=== PATIENT | female | born 1945 | race Caucasian/White ===

== ENCOUNTER 2016-09-07 09:08 | Outpatient (CLI) | payer MEDICARE, OTHER | END 2016-09-07 09:09 | disposition home or self-care (01) | DX: E78.2 Mixed hyperlipidemia (principal); E55.9 Vitamin D deficiency, unspecified; Z79.899 Other long term (current) drug therapy; F32.9 Major depressive disorder, single episode, unspecified ==

== ENCOUNTER 2016-10-25 13:11 | Outpatient (CLI) | payer MEDICARE, OTHER | END 2016-10-25 13:12 | disposition home or self-care (01) | DX: Z13.820 Encounter for screening for osteoporosis (principal); M85.88 Other specified disorders of bone density and structure, other site; Z78.0 Asymptomatic menopausal state ==

== ENCOUNTER 2016-10-25 13:12 | Outpatient (CLI) | payer MEDICARE, OTHER | END 2016-10-25 13:13 | disposition home or self-care (01) | DX: Z12.31 Encounter for screening mammogram for malignant neoplasm of breast (principal) ==

== ENCOUNTER 2017-09-07 08:31 | Outpatient (CLI) | payer MEDICARE, OTHER ==
[2017-09-07 09:03] LABS: BASOPHILS # (AUTO) 0.1 10^3/uL (0.0-0.1); BASOPHILS % (AUTO) 1.3 %; EOSINOPHILS # (AUTO) 0.4 10^3/uL (0.0-0.7); EOSINOPHILS % (AUTO) 4.5 %; HGB - HEMOGLOBIN 13.7 g/dL (12.0-16.0); LYMPHOCYTES % (AUTO) 38.1 %; MEAN CORPUSCULAR HGB CONC 33.7 g/dL (32.0-36.0); MEAN CORPUSCULAR VOLUME 97.9 fL (81.0-99.0); MEAN PLATELET VOLUME 7.3 fL (7.9-10.8); MONOCYTES # (AUTO) 0.5 10^3/uL (0.0-1.0); MONOCYTES % (AUTO) 6.6 %; NEUTROPHILS # (AUTO) 3.9 10^3/uL (1.5-6.6); NEUTROPHILS % (AUTO) 49.5 %; PLT - PLATELET COUNT 287 10^3/uL (130-450); RED BLOOD COUNT 4.16 10^6/uL (4.20-5.40); RED CELL DISTRIBUTION WIDTH 12.7 % (12.0-15.0); WHITE BLOOD COUNT 7.9 x10^3/uL (4.8-10.8)
[2017-09-07 09:23] LABS: ALBUMIN 3.8 g/dL (3.2-5.5); ALBUMIN/GLOBULIN RATIO 1.5 (1.0-2.2); ALKALINE PHOSPHATASE 60 IU/L (42-121); ALT ALANINE AMINOTRANSFERASE 17 IU/L (10-60); AST ASPARTATE AMINOTRANSFERASE 16 IU/L (10-42); BILIRUBIN,TOTAL 0.3 mg/dL (0.2-1.0); BUN - BLOOD UREA NITROGEN 15 mg/dL (6-20); CALCIUM 9.1 mg/dL (8.5-10.3); CARBON DIOXIDE - CO2 25 mmol/L (21-32); CHLORIDE 107 mmol/L (101-111); CHOL/HDL RATIO 3.3 (<4.4); CHOLESTEROL 163 mg/dL; CREATININE 1.1 mg/dL (0.4-1.0); GFR - MDRD 49 (>89); GLUCOSE 92 mg/dL (70-100); HDL CHOLESTEROL 49 mg/dL; LDL CHOLESTEROL,CALCULATED 82 mg/dL; LDL/HDL RATIO 1.7 (<4.4); SODIUM 139 mmol/L (135-145); TOTAL PROTEIN 6.4 g/dL (6.7-8.2); VLDL CHOLESTEROL 32 mg/dL
[2017-09-08 13:44] LABS: HEPATITIS C ANTIBODY NON-REACTIVE (NON-REACTIVE)
== END 2017-09-07 08:32 | disposition home or self-care (01) ==
LOC: LAB 08:31
PROVIDERS: ATTEND Physician Assistant Medical
DX: F32.9 Major depressive disorder, single episode, unspecified (principal); E78.5 Hyperlipidemia, unspecified; Z11.59 Encounter for screening for other viral diseases; Z72.89 Other problems related to lifestyle; Z79.899 Other long term (current) drug therapy
CPT/HCPCS: 36415; 80053; 80061; 82306; 83721; 84443; 85025; 86803

== ENCOUNTER 2017-10-06 14:15 | Outpatient (CLI) | payer MEDICARE, OTHER | END 2017-10-06 14:16 | disposition home or self-care (01) | LOC: LAB.R 14:15 | PROVIDERS: ATTEND Physician Assistant Medical | DX: B37.2 Candidiasis of skin and nail (principal) | CPT/HCPCS: 87101; 87106; 87220 ==

== ENCOUNTER 2017-12-27 10:50 | Outpatient (CLI) | payer MEDICARE, OTHER ==
[2017-12-27 14:03] LABS: ALBUMIN 3.7 g/dL (3.2-5.5); BILIRUBIN,DIRECT 0.1 mg/dL (0.1-0.5); BILIRUBIN,TOTAL 0.3 mg/dL (0.2-1.0); TOTAL PROTEIN 6.7 g/dL (6.7-8.2)
== END 2017-12-27 10:51 | disposition home or self-care (01) ==
LOC: LAB.R 10:50
PROVIDERS: ATTEND Physician Assistant Medical
DX: B37.2 Candidiasis of skin and nail (principal); Z79.899 Other long term (current) drug therapy
CPT/HCPCS: 80076

== ENCOUNTER 2018-03-24 09:30 | Outpatient (CLI) | payer MEDICARE, OTHER ==
[2018-03-24 10:02] LABS: ALBUMIN 3.6 g/dL (3.2-5.5); BILIRUBIN,DIRECT 0.1 mg/dL (0.1-0.5); BILIRUBIN,TOTAL 0.5 mg/dL (0.2-1.0); TOTAL PROTEIN 6.4 g/dL (6.7-8.2)
== END 2018-03-24 09:31 | disposition home or self-care (01) ==
LOC: LAB 09:30
PROVIDERS: ATTEND Physician Assistant Medical
DX: B37.2 Candidiasis of skin and nail (principal); Z79.899 Other long term (current) drug therapy
CPT/HCPCS: 36415; 80076

== ENCOUNTER 2018-04-16 16:48 | Inpatient (IN) | payer MEDICARE, OTHER ==
[2018-04-16] MEDS ORDERED: SODIUM CHLORIDE 0.9% 1,000 ML IV ONE ×2 (17:44→19:45)
--- NOTE | 2018-04-16 17:46 | ED Physician Documentation ---
PD HPI HEADACHE - Stated complaint Stated Complaint: MARTINEZ/CHILLS - Chief complaint Chief Complaint: Neuro - History obtained from History obtained from: Patient, Family ( mostly because the patient is somewhat altered) - History of Present Illness Timing - onset: Other (This is a previously very healthy 72-year-old woman who had a flu shot on Tuesday and then around started to become ill with fevers, body aches and chills and also progressively today decreased appetite. This afternoon she has not been thinking as well as usual.) Review of Systems Unable to obtain: Confused PD PAST MEDICAL HISTORY - Past Medical History Psych: Depression Musculoskeletal: Other - Past Surgical History Past Surgical History: Yes /BILLING SPEC: section HEENT: Tonsil/Adenoidectomy - Present Medications Home Medications: Ambulatory Orders Medication Instructions Recorded Confirmed Citalopram Hydrobromide [Celexa] 40 mg PO 08/12/13 01/18/15 Cyclobenzaprine [Flexeril] 10 mg PO DAILY 08/12/13 01/18/15 Hydrocodone/Acetaminophen 1 each PO DAILY 08/12/13 01/18/15 [Hydrocodon-Acetaminophn 10-325] - Allergies Allergies/Adverse Reactions: Allergies Allergy/AdvReac Type Severity Reaction Status Date / Time Sulfa (Sulfonamide Allergy Intermediate Rash Verified 04/16/18 16:55 Antibiotics) - Social History Does the pt smoke?: Yes Smoking Status: Current every day smoker Does the pt drink ETOH?: Yes - Immunizations Immunizations: TDAP >10years/unknown PD ED PE NORMAL - Vitals Vital signs reviewed: Yes - General General: Other (She is alert but falls asleep easily. She answers simple questions, she knows she is in the hospital but is a poor historian. She is unable to remember the day or the year. 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 Eye Opening: Spontaneous Motor: Obeys Commands Verbal: Confused GCS Score: 14 - Psych Psych: Normal mood, Normal affect Results - Vitals Vitals: Vital Signs - 24 hr 04/16/18 04/16/18 04/16/18 16:51 17:38 19:13 Temperature 37.4 C Heart Rate 79 104 H 106 H Respiratory 18 16 16 Rate Blood Pressure 106/41 L 105/51 L 84/44 L O2 Saturation 97 100 97 04/16/18 04/16/18 19:42 21:04 Temperature Heart Rate 104 H 97 Respiratory 18 16 Rate Blood Pressure 87/51 L 82/48 L O2 Saturation 96 97 Oxygen O2 Source Room air - EKG (time done) 1908 Rate: Rate (enter#) (103) Rhythm: NSR, LAE [place]: Normal Intervals: Normal MA QRS: Normal Ischemia: Non specific changes. No: ST elevation c/w ischemia Computer interpretation: Agree with computer - Labs Labs: Laboratory Tests 04/16/18 04/16/18 04/16/18 17:50 17:50 17:50 WBC 7.6 RBC 3.79 L Hgb 12.6 Hct 36.8 L MCV 97.0 MCH 33.3 H MCHC 34.3 RDW 13.0 Plt Count 127 L MPV 8.0 Neut # (Auto) 7.3 H Lymph # (Auto) 0.2 L [place] # (Auto) 0.2 Eos # (Auto) 0.0 Baso # (Auto) 0.0 Absolute Nucleated RBC 0.00 Nucleated RBC % 0.0 PT INR Sodium 129 L Potassium 4.1 Chloride 96 L Carbon Dioxide 22 Anion Gap 11.0 BUN 32 H Creatinine 1.5 H Estimated GFR (MDRD) 34 L Glucose 100 Lactic Acid Calcium 8.8 Total Bilirubin 0.6 AST 164 H ALT 108 H Alkaline Phosphatase 78 Total Creatine Kinase 276 H Troponin I 0.09 Total Protein 6.4 L Albumin 3.4 Globulin 3.0 Albumin/Globulin Ratio 1.1 Lipase 22 Urine Color Urine Clarity Urine pH Ur Specific [place] Urine Protein Urine Glucose (UA) Urine Ketones Urine Occult Blood Urine Nitrite Urine Bilirubin Urine Urobilinogen Ur Leukocyte Esterase Urine RBC Urine WBC Ur Squamous Epith Cells Amorphous Sediment Urine Bacteria Ur Microscopic Review Urine Culture Comments Urine Opiates Screen Ur Oxycodone Screen Urine Methadone Screen Ur Propoxyphene Screen Acetaminophen Ur Barbiturates Screen Ur Tricyclics Screen Ur Phencyclidine Scrn Ur Amphetamine Screen U Methamphetamines Scrn U Benzodiazepines Scrn Urine Cocaine Screen U Cannabinoids Screen Ethyl Alcohol < 5.0 Influenza A (Rapid) Influenza B (Rapid) 04/16/18 04/16/18 04/16/18 17:50 17:50 17:50 WBC RBC Hgb Hct MCV MCH MCHC RDW Plt Count MPV Neut # (Auto) Lymph # (Auto) [place] # (Auto) Eos # (Auto) Baso # (Auto) Absolute Nucleated RBC Nucleated RBC % PT INR Sodium Potassium Chloride Carbon Dioxide Anion Gap BUN Creatinine Estimated GFR (MDRD) Glucose Lactic Acid 1.9 Calcium Total Bilirubin AST ALT Alkaline Phosphatase Total Creatine Kinase Troponin I Total Protein Albumin Globulin Albumin/Globulin Ratio Lipase Urine Color Urine Clarity Urine pH Ur Specific [place] Urine Protein Urine Glucose (UA) Urine Ketones Urine Occult Blood Urine Nitrite Urine Bilirubin Urine Urobilinogen Ur Leukocyte Esterase Urine RBC Urine WBC Ur Squamous Epith Cells Amorphous Sediment Urine Bacteria Ur Microscopic Review Urine Culture Comments Urine Opiates Screen Ur Oxycodone Screen Urine Methadone Screen Ur Propoxyphene Screen Acetaminophen < 10 L Ur Barbiturates Screen Ur Tricyclics Screen Ur Phencyclidine Scrn Ur Amphetamine Screen U Methamphetamines Scrn U Benzodiazepines Scrn Urine Cocaine Screen U Cannabinoids Screen Ethyl Alcohol Influenza A (Rapid) Negative Influenza B (Rapid) Negative 04/16/18 04/16/18 04/16/18 19:00 19:00 19:25 WBC RBC Hgb Hct MCV MCH MCHC RDW Plt Count MPV Neut # (Auto) Lymph # (Auto) [place] # (Auto) Eos # (Auto) Baso # (Auto) Absolute Nucleated RBC Nucleated RBC % PT INR Sodium Potassium Chloride Carbon Dioxide Anion Gap BUN Creatinine Estimated GFR (MDRD) Glucose Lactic Acid Calcium Total Bilirubin AST ALT Alkaline Phosphatase Total Creatine Kinase Troponin I 0.09 Total Protein Albumin Globulin Albumin/Globulin Ratio Lipase Urine Color YELLOW Urine Clarity HAZY Urine pH 5.0 Ur Specific [place] 1.025 Urine Protein NEGATIVE Urine Glucose (UA) NEGATIVE Urine Ketones NEGATIVE Urine Occult Blood MODERATE H Urine Nitrite NEGATIVE Urine Bilirubin NEGATIVE Urine Urobilinogen 0.2 (NORMAL) Ur Leukocyte Esterase NEGATIVE Urine RBC 6-10 H Urine WBC 4-5 Ur Squamous Epith Cells MANY Squamous H Amorphous Sediment Few Urine Bacteria Few Ur Microscopic Review INDICATED Urine Culture Comments NOT INDICATED Urine Opiates Screen POSITIVE H Ur Oxycodone Screen NEGATIVE Urine Methadone Screen NEGATIVE Ur Propoxyphene Screen NEGATIVE Acetaminophen Ur Barbiturates Screen NEGATIVE Ur Tricyclics Screen POSITIVE H Ur Phencyclidine Scrn NEGATIVE Ur Amphetamine Screen NEGATIVE U Methamphetamines Scrn NEGATIVE U Benzodiazepines Scrn NEGATIVE Urine Cocaine Screen NEGATIVE U Cannabinoids Screen NEGATIVE Ethyl Alcohol Influenza A (Rapid) Influenza B (Rapid) 04/16/18 21:26 WBC RBC Hgb Hct MCV MCH MCHC RDW Plt Count MPV Neut # (Auto) Lymph # (Auto) [place] # (Auto) Eos # (Auto) Baso # (Auto) Absolute Nucleated RBC Nucleated RBC % PT 16.2 H INR 1.4 H Sodium Potassium Chloride Carbon Dioxide Anion Gap BUN Creatinine Estimated GFR (MDRD) Glucose Lactic Acid Calcium Total Bilirubin AST ALT Alkaline Phosphatase Total Creatine Kinase Troponin I Total Protein Albumin Globulin Albumin/Globulin Ratio Lipase Urine Color Urine Clarity Urine pH Ur Specific [place] Urine Protein Urine Glucose (UA) Urine Ketones Urine Occult Blood Urine Nitrite Urine Bilirubin Urine Urobilinogen Ur Leukocyte Esterase Urine RBC Urine WBC Ur Squamous Epith Cells Amorphous Sediment Urine Bacteria Ur Microscopic Review Urine Culture Comments Urine Opiates Screen Ur Oxycodone Screen Urine Methadone Screen Ur Propoxyphene Screen Acetaminophen Ur Barbiturates Screen Ur Tricyclics Screen Ur Phencyclidine Scrn Ur Amphetamine Screen U Methamphetamines Scrn U Benzodiazepines Scrn Urine Cocaine Screen U Cannabinoids Screen Ethyl Alcohol Influenza A (Rapid) Influenza B (Rapid) - Rads (name of study) 2v chest Radiology: EMP read contemporaneously (Possible small left pleural effusion without other acute findings) CT head Radiology: EMP read contemporaneously (nad) PD MEDICAL DECISION MAKING - ED course ED course: 72-year-old woman presents with an acute illness with Rigors, body aches, now altered mental status. After the administration of IV fluids her mental status returned to normal and she continued to have no meningismus. Initial workup dem onstrated a clear chest x-ray, very modest elevation in her troponin, mildly elevated liver enzymes. Troponin was repeated. She became mildly hypotensive and tachycardic, possibility of pulmonary embolism was entertained given the troponinemia and a CT was done. Hypotension was persistent. Troponin was stable. She was given a third L of IV fluids. CT neg for PE. Spoke with Dr oPrtillo for admit at 2110. Departure - Departure Disposition: ED Place in Observation Clinical Impression: Hypotension, Tachycardia, Elevated liver enzymes, Elevated troponin, Dehydration, Acute renal injury Condition: Serious Discharge Date/Time: 04/16/18 22:27
[2018-04-16 18:05] LABS: BASOPHILS % (AUTO) 0.2 %; HGB - HEMOGLOBIN 12.6 g/dL (12.0-16.0); LYMPHOCYTES # (AUTO) 0.2 10^3/uL (1.5-3.5); LYMPHOCYTES % (AUTO) 2.3 %; MEAN CORPUSCULAR HEMOGLOBIN 33.3 pg (27.0-31.0); MEAN CORPUSCULAR HGB CONC 34.3 g/dL (32.0-36.0); MONOCYTES # (AUTO) 0.2 10^3/uL (0.0-1.0); MONOCYTES % (AUTO) 2.1 %; NEUTROPHILS # (AUTO) 7.3 10^3/uL (1.5-6.6); NEUTROPHILS % (AUTO) 95.4 %; PLT - PLATELET COUNT 127 10^3/uL (130-450); RED BLOOD COUNT 3.79 10^6/uL (4.20-5.40); WHITE BLOOD COUNT 7.6 x10^3/uL (4.8-10.8)
--- NOTE | 2018-04-16 18:14 | CT Report ---
Reason: altered Procedure Date: 04/16/2018 Accession Number: [id number] / [id number] Procedure: CT - Head W/O CPT Code: FULL RESULT: EXAM: CT HEAD EXAM DATE: 04/16/2018 05:56 PM. CLINICAL HISTORY: Altered. COMPARISON: None available. TECHNIQUE: Multiaxial CT images were obtained from the foramen magnum to the vertex. Reformats: Sagittal and coronal. IV contrast: None. In accordance with CT protocol optimization, one or more of the following dose reduction techniques were utilized for this exam: automated exposure control, adjustment of mA and/or KV based on patient size, or use of iterative reconstructive technique. FINDINGS: Parenchyma: No acute intraparenchymal hemorrhage. No evidence of mass or midline shift. Patel-white differentiation is distinct. Extraaxial Spaces: No subdural or epidural collections identified. Ventricles: Normal in size and position. Sinuses and Orbits: Imaged paranasal sinuses, orbits, and mastoids show no significant abnormality. Bones: No evidence of fracture or calvarial defect. Other: None. IMPRESSION: No acute intracranial findings. An acute infarct may not be visible by CT. Follow-up examinations recommended as clinically indicated. RADIA
[2018-04-16 18:15] LABS: ALBUMIN 3.4 g/dL (3.2-5.5); ALBUMIN/GLOBULIN RATIO 1.1 (1.0-2.2); ALKALINE PHOSPHATASE 78 IU/L (42-121); ALT ALANINE AMINOTRANSFERASE 108 IU/L (10-60); AST ASPARTATE AMINOTRANSFERASE 164 IU/L (10-42); BILIRUBIN,TOTAL 0.6 mg/dL (0.2-1.0); BUN - BLOOD UREA NITROGEN 32 mg/dL (6-20); CALCIUM 8.8 mg/dL (8.5-10.3); CARBON DIOXIDE - CO2 22 mmol/L (21-32); CHLORIDE 96 mmol/L (101-111); CK- CREATINE KINASE 276 IU/L (22-269); CREATININE 1.5 mg/dL (0.4-1.0); GFR - MDRD 34 (>89); GLUCOSE 100 mg/dL (70-100); LIPASE 22 U/L (22-51); SODIUM 129 mmol/L (135-145); TOTAL PROTEIN 6.4 g/dL (6.7-8.2)
--- NOTE | 2018-04-16 18:24 | XRAY Report ---
Reason: fever Procedure Date: 04/16/2018 Accession Number: [id number] / [id number] Procedure: XR - Chest 2 View X-Ray CPT Code: 60978 FULL RESULT: EXAM: CHEST RADIOGRAPHY EXAM DATE: 04/16/2018 06:12 PM. CLINICAL HISTORY: Fever. COMPARISON: None. TECHNIQUE: 2 views. FINDINGS: Lungs/Pleura: Lungs are well expanded. No evidence of lobar consolidation. There may be a small left pleural effusion. There is no pneumothorax. Mediastinum: Normal heart size. Minimal thoracic aortic tortuosity and calcification. Other: Mild S shaped scoliotic curvature of the thoracolumbar spine. IMPRESSION: 1. Normal lung volumes and heart size. 2. No evidence of lobar infiltrate. 3. Possible small left pleural effusion. 4. No pneumothorax. RADIA
[2018-04-16 19:14] LABS: MUDS CUTOFF CONCENTRATIONS CUTOFF CONC BELOW:
[2018-04-16 19:15] LABS: BILIRUBIN,URINE NEGATIVE (NEGATIVE); GLUCOSE, URINE (UA) NEGATIVE (NEGATIVE); KETONES,URINE (UA) NEGATIVE (NEGATIVE); LEUKOCYTE ESTERASE, URINE NEGATIVE (NEGATIVE); NITRITE,URINE NEGATIVE (NEGATIVE); OCCULT BLOOD,URINE MODERATE (NEGATIVE); PROTEIN,URINE NEGATIVE (NEGATIVE); UROBILINOGEN,URINE 0.2 (NORMAL) E.U./dL (NORMAL)
[2018-04-16 19:21] LABS: CLARITY,URINE HAZY (CLEAR)
[2018-04-16] MEDS ORDERED: IOPAMIDOL-300 100 ML VIAL ONE (19:25)
[2018-04-16 19:26] LABS: AMPHETAMINE SCREEN,URINE NEGATIVE (NEGATIVE); BENZODIAZEPINES SCREEN, URINE NEGATIVE (NEGATIVE); COCAINE SCREEN URINE NEGATIVE (NEGATIVE); METHADONE SCREEN, URINE NEGATIVE (NEGATIVE); METHAMPHETAMINES SCREEN, URINE NEGATIVE (NEGATIVE); OPIATE SCREEN, URINE POSITIVE (NEGATIVE); OXYCODONE SCREEN, URINE NEGATIVE (NEGATIVE); PROPOXYPHENE SCREEN, URINE NEGATIVE (NEGATIVE); TRICYCLIC ANTIDEPRESSANT,URINE POSITIVE (NEGATIVE)
[2018-04-16 19:33] LABS: AMORPHOUS SEDIMENT,UR Few /LPF; BACTERIA,URINE Few /HPF (None Seen); SQUAMOUS EPITHELIAL CELL,UR MANY Squamous (<= Few)
[2018-04-16] MEDS ORDERED: IOPAMIDOL-300 100 ML VIAL IVP ONE (20:03)
--- NOTE | 2018-04-16 20:49 | CT Report ---
Reason: tachycardia Procedure Date: 04/16/2018 Accession Number: [id number] / [id number] Procedure: CT - Chest Angio (PE) CPT Code: FULL RESULT: EXAM: CT ANGIOGRAM CHEST EXAM DATE: 04/16/2018 08:19 PM. CLINICAL HISTORY: Tachycardia. COMPARISON: None. TECHNIQUE: Routine helical imaging was performed through the chest in the pulmonary arterial phase. IV Contrast: ISOVUE 300 80mL. Reconstructions: Coronal 3-D MIP reconstructions.Sagittal and coronal. In accordance with CT protocol optimization, one or more of the following dose reduction techniques were utilized for this exam: automated exposure control, adjustment of mA and/or KV based on patient size, or use of iterative reconstructive technique. FINDINGS: Pulmonary Arteries: Diagnostic quality: Adequate through the segmental arteries. No evidence for acute or chronic pulmonary emboli. Lungs/Pleura: No consolidation, nodules, or edema. No effusions or pneumothorax. Mediastinum: Normal. No cardiac enlargement or adenopathy. Thoracic Aorta: Unremarkable. Upper Abdomen: The visualized portions of the upper abdominal organs demonstrate no acute abnormalities. Other: None. IMPRESSION: Negative pulmonary CT angiogram. No pulmonary emboli. RADIA
[2018-04-16] MEDS ORDERED: PIPERACILLIN/TAZOBACTAM 3.375 GM in SODIUM CHLORIDE 0.9% MINIBAG 100 ML IV STA (21:02)
[2018-04-16] MEDS ORDERED: LACTATED RINGERS 1,000 ML IV STA (21:02)
[2018-04-16 21:35] LABS: INR 1.4 (0.8-1.2); PT - PROTHROMBIN TIME 16.2 secs (9.9-12.6)
[2018-04-16] MEDS ORDERED: PROCHLORPERAZINE 10 MG/2 ML VIAL IVP PRN (21:52)
[2018-04-16] MEDS ORDERED: VANCOMYCIN INJ 1 GM in SODIUM CHLORIDE 0.9% 500 ML IV SCH (22:00)
[2018-04-16] MEDS ORDERED: VANCOMYCIN 1 GM VIAL ONE (22:01)
[2018-04-16] MEDS: D5NS W/20 MEQ KCL 1,000 ML IV SCH (22:57)
[2018-04-17] MEDS ORDERED: SODIUM CHLORIDE 0.9% 1,000 ML IV ONE (00:17)
[2018-04-17] MEDS: SODIUM CHLORIDE FLUSH 0.9% 10 ML SYRINGE IVP SCH ×3 (00:31→17:00)
--- NOTE | 2018-04-17 01:40 | HISTORY & PHYSICAL EXAMINATION ---
DATE OF SERVICE: 04/16/2018 Physician: Kristi Portillo MD HISTORY OF PRESENT ILLNESS: This is a 72-year-old white female with a history of neck pain for which she takes Flexeril and pain medications. She is a smoker with possible COPD. The patient got a flu shot about 6 days ago. Two days ago, she started to develop weakness, severe rigors, and intermittently was confused. This morning, she had severe shaking chills for many hours. Her felt her skin and said that she felt clammy. No temperature was measured. She got more confused and was unable to answer coherently, and he brought her to the emergency room. In the emergency room, she had a low blood pressure of 90-100 systolic, received 1 L of fluid, which improved her mental status back to normal. She denied any other complaints such as dysuria, cough, shortness of breath, nausea, vomiting or diarrhea. Her labs are showing acute kidney injury, possibly from dehydration. PAST MEDICAL HISTORY 1. Neck pain, for which she takes muscle relaxants and pain medications. 2. Possible COPD with longstanding smoking history. FAMILY HISTORY: No inherited diseases. She has a brother, who is healthy. She has 1 child, who is healthy. SOCIAL HISTORY: She is a smoker of half a pack a day for many years. She drinks very rare alcohol and uses no illicit drugs. REVIEW OF SYSTEMS: A comprehensive review of systems was performed, and the pertinent positives are in the HPI; the rest are negative. She says she occasionally does get a flu shot and never has had a reaction such as this. ALLERGIES: SULFA. MEDICATIONS 1. Flexeril. 2. Tylenol with codeine. 3. Celexa. PHYSICAL EXAMINATION GENERAL: White female who appears older than her age. She has marked wrinkling of the skin of her face. VITAL SIGNS: Blood pressure 101/63, pulse of 94-104 in sinus rhythm, afebrile, room air saturation 94%. HEENT: Shows dry oral mucosa. NECK: Without JVD or carotid bruits. CHEST: Clear. HEART: Sounds normal. ABDOMEN: Soft, nontender. No organomegaly. EXTREMITIES: No clubbing, cyanosis, or edema. NEUROLOGIC: Intact. A nurse in the emergency room said that she had excoriation over the buttocks and sacral area. LABORATORY DATA: Sodium 129, potassium 4.1, BUN 32, creatinine 1.5. Lactic acid 1.9. AST 164, ALT 108, alkaline phosphatase 78, bilirubin normal at 0.6. Troponins are normal x2 at 0.09 and 0.09. Lipase normal at 22. White blood count 7.6 with a left shift, hemoglobin 12.6 with an MCV of 97, platelet count 127. INR 1.4. Urine screen showed positive opiates and positive tricyclics. No alcohol. Urinalysis unremarkable. Influenza was negative for A and B. DIAGNOSTIC STUDIES 1. Chest x-ray unremarkable. 2. CTA of the chest unremarkable with no PE. CT of the brain showed no acute findings. 3. EKG: Sinus tachycardia, diffusely flat T waves. IMPRESSION/DIAGNOSES 1. Altered mental status. 2. Dehydration. 3. Influenza-like symptoms. 4. Acute kidney injury. 5. Elevated liver function tests. 6. Abnormal EKG. PLAN: Place the patient in Observation on telemetry. Begin IV fluids. CT of the head was done and has shown no abnormality, and she did not present with symptoms of TIA with focal findings. Rather, more likely her flu-like symptoms or dehydration caused the altered mental status, which has now cleared. Follow her liver function tests and obtain an abdomen CT to evaluate the liver and surrounding organs. Assess her orthostatic vital signs and signs of dehydration before discharge. The patient was fully cultured and given empiric Zosyn and Vancomycin in the emergency room. These will not be continued, as there is no obvious source of a bacterial infection other than her elevated liver tests. CODE STATUS: FULL CODE. DEEP VENOUS THROMBOSIS PROPHYLAXIS: SCDs. ATTESTATION: The patient is expected to be discharged or transferred to another facility within 96 hours: Yes. TD: 04/17/2018 00:26 MTDTim
[2018-04-17] MEDS: HYDROcod/ACETAM 5/325 MG TABLET PO PRN ×4 (01:44→19:23)
[2018-04-17] MEDS ORDERED: VANCOMYCIN PER PHARMACY 100 GM in SODIUM CHLORIDE 0.9% 250 ML IV PRN (05:00)
[2018-04-17 05:48] LABS: ALBUMIN 2.4 g/dL (3.2-5.5); BILIRUBIN,TOTAL 0.7 mg/dL (0.2-1.0); CALCIUM 7.7 mg/dL (8.5-10.3); CREATININE 1.1 mg/dL (0.4-1.0); TOTAL PROTEIN 4.7 g/dL (6.7-8.2)
[2018-04-17] MEDS: D5NS W/20 MEQ KCL 1,000 ML IV SCH ×4 (06:02→21:47)
[2018-04-17] MEDS: PANTOPRAZOLE 40 MG TABLET PO SCH (06:15)
[2018-04-17] MEDS ORDERED: IOPAMIDOL-300 50 ML VIAL ONE (07:40)
[2018-04-17] MEDS ORDERED: MIN OIL/DIMETHICON/COCONUT OIL 92 GM TUBE TOP PRN (08:32)
[2018-04-17] MEDS: POLYETHYLENE GLYCOL 3350 17 GM PACKET PO SCH (09:19)
[2018-04-17] MEDS: CITALOPRAM 10 MG TABLET PO SCH (09:19)
--- NOTE | 2018-04-17 11:30 | PROVIDER PROGRESS NOTE ---
Subjective - Prog Note Date Prog Note Date: 04/17/18 Prog Note Time: 11:29 - Subjective Pt reports feeling: Improved Subjective: Elsie complains about being in the hospital and immediately wants to know when she gets to go home. Her , Roberto is at the bedside later today for test results, and an update on medical condition. She denies chest pain, nausea, vomiting, a new rash, worsening shortness of breath or a new cough. She states that her back is still bothering her and denies any falls or injuries to it. She believes that it may be due to being confined to bed. Current Medications - Current Medications Current Medications: Active Medications Acetaminophen (Tylenol) 650 mg PO Q4HR PRN PRN Reason: Mild pain/Fever > 38C (100.4F) Hydrocodone Bitart/Acetaminophen ([place] 5/325) 1 tab PO Q4HR PRN PRN Reason: Pain 5 to 7 Last Admin: 04/17/18 15:39 Dose: 1 tab Albuterol/Ipratropium (Duoneb) 3 ml INH Q4HR PRN PRN Reason: Wheezing Citalopram Hydrobromide (Celexa) 40 mg PO DAILY [facility] Last Admin: 04/17/18 09:19 Dose: 40 mg Potassium Chloride/Dextrose/Sod Cl () 1,000 mls @ 200 mls/hr IV .Q5H KEESHA Last Admin: 04/17/18 16:20 Dose: 200 mls/hr Vancomycin HCl 1 gm/ Sodium (Chloride) 250 mls @ 167 mls/hr IV Q24H KEESHA Piperacillin Sod/Tazobactam (Sod 2.25 gm/ Sodium Chloride) 100 mls @ 200 mls/hr IV Q6H KEESHA Mineral Oil (Cavilon) 1 applic TOP PRN PRN PRN Reason: Skin Care Nicotine (Nicoderm) 1 patch TOP DAILY PRN PRN Reason: NEEDED PER PROVIDER ORDERS Pantoprazole Sodium (Protonix) 40 mg PO QDAC [facility] Last Admin: 04/17/18 06:15 Dose: 40 mg Polyethylene Glycol (Miralax) 17 gm PO DAILY [facility] Last Admin: 04/17/18 09:19 Dose: 17 gm Prochlorperazine Edisylate (Compazine Inj) 10 mg IVP Q6HR PRN PRN Reason: Nausea / Vomiting Last Admin: 04/17/18 07:55 Dose: 10 mg Sodium Chloride (Normal Saline Flush 0.9%) 10 ml IVP PRN PRN PRN Reason: NEEDED PER PROVIDER ORDERS Sodium Chloride (Normal Saline Flush 0.9%) 10 ml IVP 0100,0900,1700 KEESHA Last Admin: 04/17/18 17:00 Dose: Not Given Citalopram Hydrobromide [Celexa] 40 mg PO DAILY 08/12/13 Cyclobenzaprine [Flexeril] 10 mg PO DAILY 08/12/13 Hydrocodone/Acetaminophen [Hydrocodon-Acetaminophn 10-325] 1 each PO Q6HR PRN MDD TAKES 3-4 DAILY 08/12/13 Calcium Carbonate/Vitamin D3 [Calcium 600-Vit D3 500 Softgel] 1 cap PO DAILY 04/17/18 Cholecalciferol (Vitamin D3) [Vitamin D3] 500 unit PO DAILY 04/17/18 Multivitamin/Iron/Folic Acid [Centrum Adults Tablet] 1 each PO DAILY 04/17/18 [place]-3/Dha/Epa/Fish Oil [Fish Oil 1,000 mg Softgel] 1 each PO DAILY 04/17/18 Objective - Vital Signs/Intake & Output Reviewed Vital Signs: Yes Vital Signs: Vital Signs x48h Temp Pulse Resp BP Pulse Ox 04/17/18 07:59 36.6 C 86 16 91/46 L 97 04/17/18 05:00 36.6 C 95 18 89/48 L 97 Intake & Output: Intake & Output 04/14/18 04/15/18 04/16/18 04/17/18 23:59 23:59 23:59 23:59 Intake Total 3100 3046.667 Output Total 450 Balance 3100 2596.667 - Objective General Appearance: positive: Moderate distress, Anxious Eyes Bilateral: positive: PERRL, No lid inflammation ENT: positive: Pharynx nml, Dry mucous membranes Neck: positive: No JVD, Trachea midline Respiratory: positive: Chest non-tender, Rhonchi Cardiovascular: positive: Regular rate & rhythm, No gallop, Systolic murmur, Decreased pulse(s) Peripheral Pulses: 1+ Radial (R), 1+ Radial (L) Abdomen: positive: Non-tender, Nml bowel sounds, Other (rounded, soft) Back: positive: Nml inspection Skin: positive: No rash, Warm, Dry, Cyanosis, Diaphoresis, Pallor Extremities: positive: Non-tender, Nml appearance, No pedal edema Neurologic/Psychiatric: positive: Oriented x3, CN's nml (2-12), Motor nml, Sensation nml, Weakness, Depressed mood/affect Reflexes: Bicep (R): 3+, Bicep (L): 3+ - Lab Results Fish Bones: 04/17/18 12:07 04/17/18 05:14 Other Labs: Lab Results x24hrs 04/17/18 04/16/18 04/16/18 Range/Units 05:14 21:26 19:25 WBC (4.8-10.8) x10^3/uL RBC (4.20-5.40) 10^6/uL Hgb (12.0-16.0) g/dL Hct (37.0-47.0) % MCV (81.0-99.0) fL MCH (27.0-31.0) pg MCHC (32.0-36.0) g/dL RDW (12.0-15.0) % Plt Count (130-450) 10^3/uL MPV (7.9-10.8) fL Neut # (Auto) (1.5-6.6) 10^3/uL Lymph # (Auto) (1.5-3.5) 10^3/uL [place] # (Auto) (0.0-1.0) 10^3/uL Eos # (Auto) (0.0-0.7) 10^3/uL Baso # (Auto) (0.0-0.1) 10^3/uL Absolute Nucleated RBC x10^3/uL Nucleated RBC % /100WBC PT 16.2 H (9.9-12.6) secs INR 1.4 H (0.8-1.2) Sodium 135 (135-145) mmol/L Potassium 3.6 (3.5-5.0) mmol/L Chloride 109 (101-111) mmol/L Carbon Dioxide 20 L (21-32) mmol/L Anion Gap 6.0 (6-13) BUN 23 H (6-20) mg/dL Creatinine 1.1 H (0.4-1.0) mg/dL Estimated GFR (MDRD) 49 L (>89) Glucose 137 H (70-100) mg/dL Lactic Acid (0.5-2.2) mmol/L Calcium 7.7 L (8.5-10.3) mg/dL Total Bilirubin 0.7 (0.2-1.0) mg/dL AST 159 H (10-42) IU/L ALT 101 H (10-60) IU/L Alkaline Phosphatase 66 (42-121) IU/L Total Creatine Kinase (22-269) IU/L Troponin I 0.09 (<0.49) ng/mL Total Protein 4.7 L (6.7-8.2) g/dL Albumin 2.4 L (3.2-5.5) g/dL Globulin 2.3 (2.1-4.2) g/dL Albumin/Globulin Ratio 1.0 (1.0-2.2) Lipase (22-51) U/L Urine Color Urine Clarity (CLEAR) Urine pH (5.0-7.5) PH Ur Specific [place] (1.002-1.030) Urine Protein (NEGATIVE) mg/dL Urine Glucose (UA) (NEGATIVE) mg/dL Urine Ketones (NEGATIVE) mg/dL Urine Occult Blood (NEGATIVE) Urine Nitrite (NEGATIVE) Urine Bilirubin (NEGATIVE) Urine Urobilinogen (NORMAL) E.U./dL Ur Leukocyte Esterase (NEGATIVE) Urine RBC (0-5) /HPF Urine WBC (0-5) /HPF Ur Squamous Epith Cells (<= Few) Amorphous Sediment /LPF Urine Bacteria (None Seen) /HPF Ur Microscopic Review Urine Culture Comments Urine Opiates Screen (NEGATIVE) Ur Oxycodone Screen (NEGATIVE) Urine Methadone Screen (NEGATIVE) Ur Propoxyphene Screen (NEGATIVE) Acetaminophen (10-30) ug/mL Ur Barbiturates Screen (NEGATIVE) Ur Tricyclics Screen (NEGATIVE) Ur Phencyclidine Scrn (NEGATIVE) Ur Amphetamine Screen (NEGATIVE) U Methamphetamines Scrn (NEGATIVE) U Benzodiazepines Scrn (NEGATIVE) Urine Cocaine Screen (NEGATIVE) U Cannabinoids Screen (NEGATIVE) Ethyl Alcohol mg/dL Influenza A (Rapid) (Negative) Influenza B (Rapid) (Negative) 04/16/18 04/16/18 04/16/18 Range/Units 19:00 19:00 17:50 WBC (4.8-10.8) x10^3/uL RBC (4.20-5.40) 10^6/uL Hgb (12.0-16.0) g/dL Hct (37.0-47.0) % MCV (81.0-99.0) fL MCH (27.0-31.0) pg MCHC (32.0-36.0) g/dL RDW (12.0-15.0) % Plt Count (130-450) 10^3/uL MPV (7.9-10.8) fL Neut # (Auto) (1.5-6.6) 10^3/uL Lymph # (Auto) (1.5-3.5) 10^3/uL [place] # (Auto) (0.0-1.0) 10^3/uL Eos # (Auto) (0.0-0.7) 10^3/uL Baso # (Auto) (0.0-0.1) 10^3/uL Absolute Nucleated RBC x10^3/uL Nucleated RBC % /100WBC PT (9.9-12.6) secs INR (0.8-1.2) Sodium (135-145) mmol/L Potassium (3.5-5.0) mmol/L Chloride (101-111) mmol/L Carbon Dioxide (21-32) mmol/L Anion Gap (6-13) BUN (6-20) mg/dL Creatinine (0.4-1.0) mg/dL Estimated GFR (MDRD) (>89) Glucose (70-100) mg/dL Lactic Acid (0.5-2.2) mmol/L Calcium (8.5-10.3) mg/dL Total Bilirubin (0.2-1.0) mg/dL AST (10-42) IU/L ALT (10-60) IU/L Alkaline Phosphatase (42-121) IU/L Total Creatine Kinase (22-269) IU/L Troponin I (<0.49) ng/mL Total Protein (6.7-8.2) g/dL Albumin (3.2-5.5) g/dL Globulin (2.1-4.2) g/dL Albumin/Globulin Ratio (1.0-2.2) Lipase (22-51) U/L Urine Color YELLOW Urine Clarity HAZY (CLEAR) Urine pH 5.0 (5.0-7.5) PH Ur Specific [place] 1.025 (1.002-1.030) Urine Protein NEGATIVE (NEGATIVE) mg/dL Urine Glucose (UA) NEGATIVE (NEGATIVE) mg/dL Urine Ketones NEGATIVE (NEGATIVE) mg/dL Urine Occult Blood MODERATE H (NEGATIVE) Urine Nitrite NEGATIVE (NEGATIVE) Urine Bilirubin NEGATIVE (NEGATIVE) Urine Urobilinogen 0.2 (NORMAL) (NORMAL) E.U./dL Ur Leukocyte Esterase NEGATIVE (NEGATIVE) Urine RBC 6-10 H (0-5) /HPF Urine WBC 4-5 (0-5) /HPF Ur Squamous Epith Cells MANY Squamous H (<= Few) Amorphous Sediment Few /LPF Urine Bacteria Few (None Seen) /HPF Ur Microscopic Review INDICATED Urine Culture Comments NOT INDICATED Urine Opiates Screen POSITIVE H (NEGATIVE) Ur Oxycodone Screen NEGATIVE (NEGATIVE) Urine Methadone Screen NEGATIVE (NEGATIVE) Ur Propoxyphene Screen NEGATIVE (NEGATIVE) Acetaminophen < 10 L (10-30) ug/mL Ur Barbiturates Screen NEGATIVE (NEGATIVE) Ur Tricyclics Screen POSITIVE H (NEGATIVE) Ur Phencyclidine Scrn NEGATIVE (NEGATIVE) Ur Amphetamine Screen NEGATIVE (NEGATIVE) U Methamphetamines Scrn NEGATIVE (NEGATIVE) U Benzodiazepines Scrn NEGATIVE (NEGATIVE) Urine Cocaine Screen NEGATIVE (NEGATIVE) U Cannabinoids Screen NEGATIVE (NEGATIVE) Ethyl Alcohol mg/dL Influenza A (Rapid) (Negative) Influenza B (Rapid) (Negative) 04/16/18 04/16/18 04/16/18 Range/Units 17:50 17:50 17:50 WBC (4.8-10.8) x10^3/uL RBC (4.20-5.40) 10^6/uL Hgb (12.0-16.0) g/dL Hct (37.0-47.0) % MCV (81.0-99.0) fL MCH (27.0-31.0) pg MCHC (32.0-36.0) g/dL RDW (12.0-15.0) % Plt Count (130-450) 10^3/uL MPV (7.9-10.8) fL Neut # (Auto) (1.5-6.6) 10^3/uL Lymph # (Auto) (1.5-3.5) 10^3/uL [place] # (Auto) (0.0-1.0) 10^3/uL Eos # (Auto) (0.0-0.7) 10^3/uL Baso # (Auto) (0.0-0.1) 10^3/uL Absolute Nucleated RBC x10^3/uL Nucleated RBC % /100WBC PT (9.9-12.6) secs INR (0.8-1.2) Sodium (135-145) mmol/L Potassium (3.5-5.0) mmol/L Chloride (101-111) mmol/L Carbon Dioxide (21-32) mmol/L Anion Gap (6-13) BUN (6-20) mg/dL Creatinine (0.4-1.0) mg/dL Estimated GFR (MDRD) (>89) Glucose (70-100) mg/dL Lactic Acid 1.9 (0.5-2.2) mmol/L Calcium (8.5-10.3) mg/dL Total Bilirubin (0.2-1.0) mg/dL AST (10-42) IU/L ALT (10-60) IU/L Alkaline Phosphatase (42-121) IU/L Total Creatine Kinase (22-269) IU/L Troponin I 0.09 (<0.49) ng/mL Total Protein (6.7-8.2) g/dL Albumin (3.2-5.5) g/dL Globulin (2.1-4.2) g/dL Albumin/Globulin Ratio (1.0-2.2) Lipase (22-51) U/L Urine Color Urine Clarity (CLEAR) Urine pH (5.0-7.5) PH Ur Specific [place] (1.002-1.030) Urine Protein (NEGATIVE) mg/dL Urine Glucose (UA) (NEGATIVE) mg/dL Urine Ketones (NEGATIVE) mg/dL Urine Occult Blood (NEGATIVE) Urine Nitrite (NEGATIVE) Urine Bilirubin (NEGATIVE) Urine Urobilinogen (NORMAL) E.U./dL Ur Leukocyte Esterase (NEGATIVE) Urine RBC (0-5) /HPF Urine WBC (0-5) /HPF Ur Squamous Epith Cells (<= Few) Amorphous Sediment /LPF Urine Bacteria (None Seen) /HPF Ur Microscopic Review Urine Culture Comments Urine Opiates Screen (NEGATIVE) Ur Oxycodone Screen (NEGATIVE) Urine Methadone Screen (NEGATIVE) Ur Propoxyphene Screen (NEGATIVE) Acetaminophen (10-30) ug/mL Ur Barbiturates Screen (NEGATIVE) Ur Tricyclics Screen (NEGATIVE) Ur Phencyclidine Scrn (NEGATIVE) Ur Amphetamine Screen (NEGATIVE) U Methamphetamines Scrn (NEGATIVE) U Benzodiazepines Scrn (NEGATIVE) Urine Cocaine Screen (NEGATIVE) U Cannabinoids Screen (NEGATIVE) Ethyl Alcohol mg/dL Influenza A (Rapid) Negative (Negative) Influenza B (Rapid) Negative (Negative) 04/16/18 04/16/18 Range/Units 17:50 17:50 WBC 7.6 (4.8-10.8) x10^3/uL RBC 3.79 L (4.20-5.40) 10^6/uL Hgb 12.6 (12.0-16.0) g/dL Hct 36.8 L (37.0-47.0) % MCV 97.0 (81.0-99.0) fL MCH 33.3 H (27.0-31.0) pg MCHC 34.3 (32.0-36.0) g/dL RDW 13.0 (12.0-15.0) % Plt Count 127 L (130-450) 10^3/uL MPV 8.0 (7.9-10.8) fL Neut # (Auto) 7.3 H (1.5-6.6) 10^3/uL Lymph # (Auto) 0.2 L (1.5-3.5) 10^3/uL [place] # (Auto) 0.2 (0.0-1.0) 10^3/uL Eos # (Auto) 0.0 (0.0-0.7) 10^3/uL Baso # (Auto) 0.0 (0.0-0.1) 10^3/uL Absolute Nucleated RBC 0.00 x10^3/uL Nucleated RBC % 0.0 /100WBC PT (9.9-12.6) secs INR (0.8-1.2) Sodium 129 L (135-145) mmol/L Potassium 4.1 (3.5-5.0) mmol/L Chloride 96 L (101-111) mmol/L Carbon Dioxide 22 (21-32) mmol/L Anion Gap 11.0 (6-13) BUN 32 H (6-20) mg/dL Creatinine 1.5 H (0.4-1.0) mg/dL Estimated GFR (MDRD) 34 L (>89) Glucose 100 (70-100) mg/dL Lactic Acid (0.5-2.2) mmol/L Calcium 8.8 (8.5-10.3) mg/dL Total Bilirubin 0.6 (0.2-1.0) mg/dL AST 164 H (10-42) IU/L ALT 108 H (10-60) IU/L Alkaline Phosphatase 78 (42-121) IU/L Total Creatine Kinase 276 H (22-269) IU/L Troponin I (<0.49) ng/mL Total Protein 6.4 L (6.7-8.2) g/dL Albumin 3.4 (3.2-5.5) g/dL Globulin 3.0 (2.1-4.2) g/dL Albumin/Globulin Ratio 1.1 (1.0-2.2) Lipase 22 (22-51) U/L Urine Color Urine Clarity (CLEAR) Urine pH (5.0-7.5) PH Ur Specific [place] (1.002-1.030) Urine Protein (NEGATIVE) mg/dL Urine Glucose (UA) (NEGATIVE) mg/dL Urine Ketones (NEGATIVE) mg/dL Urine Occult Blood (NEGATIVE) Urine Nitrite (NEGATIVE) Urine Bilirubin (NEGATIVE) Urine Urobilinogen (NORMAL) E.U./dL Ur Leukocyte Esterase (NEGATIVE) Urine RBC (0-5) /HPF Urine WBC (0-5) /HPF Ur Squamous Epith Cells (<= Few) Amorphous Sediment /LPF Urine Bacteria (None Seen) /HPF Ur Microscopic Review Urine Culture Comments Urine Opiates Screen (NEGATIVE) Ur Oxycodone Screen (NEGATIVE) Urine Methadone Screen (NEGATIVE) Ur Propoxyphene Screen (NEGATIVE) Acetaminophen (10-30) ug/mL Ur Barbiturates Screen (NEGATIVE) Ur Tricyclics Screen (NEGATIVE) Ur Phencyclidine Scrn (NEGATIVE) Ur Amphetamine Screen (NEGATIVE) U Methamphetamines Scrn (NEGATIVE) U Benzodiazepines Scrn (NEGATIVE) Urine Cocaine Screen (NEGATIVE) U Cannabinoids Screen (NEGATIVE) Ethyl Alcohol < 5.0 mg/dL Influenza A (Rapid) (Negative) Influenza B (Rapid) (Negative) ABX Reporting Has patient been on IV antibiotics over the past 48 hours?: Yes Assessment/Plan - Problem List (1) Blood bacterial culture positive Impression: Blood cultures x2 were obtained on admission, and both samples have positive preliminary results. She had been having chills, rigors, and altered mental status at home. Her urine sample did not show UTI, and today on second imaging, a bilateral lobe consolidation is noted concerning for aspiration. Plan: Continue to await final cultures, continue IV antibiotics. (2) Bilateral pneumonia Impression: The patient was very dehydrated upon admission and initial imaging did not show any pneumonia, but on the second set of imaging, bilateral bibasilar consolidati on with an appearance concerning for aspiration is noted. She has been oxygen dependent since admission, and is normally dependent only to cigarettes at home. She denies cough, or increased shortness of breath. She is also found to have gram + clusters on 2 of 2 blood cultures, so this may have been the source. Plan: Start a second IV antibiotic agent, continue oxygen, monitor vital signs. Qualifiers: Pneumonia type: aspiration pneumonia Lung location: lower lobe of lung (3) Tobacco dependence Impression: The patient has been a life long smoker, and states that she currently uses 10- 15 cigarettes per day. She refuses a nicotine patch when asked and states that she is not shaky. Plan: Continue to monitor for symptoms and add a nicotine patch, PRN. (4) Acute renal injury Impression: The patient is not known to have kidney disease and had an admission creatinine of 1.5, and a reduced GFR of 34. She has been on fluids today and improved to a creatinine of 1.1. She is having low back pain, and no dysuria. Plan: She will remain on fluids with daily labs. (5) Hypotension Impression: The patient has had ongoing blood pressure issues and today her low was charted as 91/46. She did not require any further IV boluses, but remains on IV fluids. She is not on any antihypertensives. Plan: Continue to monitor vital signs and treat acute infection. Qualifiers: Hypotension type: idiopathic hypotension Qualified Code(s): I95.0 - Idiopathic hypotension (6) Elevated liver enzymes Impression: The patient presented with very elevated AST/ALT of 159/101 that remain the same today. She denies any alcohol use and this was also confirmed with her . She has a normal bilirubin, and no abdominal pain. She does have a poor appetite, but this may be due to her sepsis. Her reports that recently she was treated for a nail fungal infection, which may have been liver toxic. Plan: Continue to monitor daily labs. (7) Elevated troponin Impression: The patient had an elevated troponin on admission at 0.09 x2, but in the setting of her acute illness, low back pain, ongoing hypoxia, the next troponin was elevated at 0.22. On exam, she denies nausea, headaches, chest pain, numbness or tingling, or dizziness. This could reflect her MIL, or she may have true heart injury. Plan: Continue to trend troponins, check TSH, CK, lactic acid, and obtain a new EKG.
[2018-04-17] MEDS ORDERED: NICOTINE 7 MG PATCH TOP PRN (11:35)
[2018-04-17 12:33] LABS: BASOPHILS % (AUTO) 0.1 %; HGB - HEMOGLOBIN 11.3 g/dL (12.0-16.0); LYMPHOCYTES # (AUTO) 0.3 10^3/uL (1.5-3.5); LYMPHOCYTES % (AUTO) 4.4 %; MEAN CORPUSCULAR HEMOGLOBIN 34.2 pg (27.0-31.0); MEAN CORPUSCULAR VOLUME 97.7 fL (81.0-99.0); MEAN PLATELET VOLUME 8.1 fL (7.9-10.8); MONOCYTES # (AUTO) 0.3 10^3/uL (0.0-1.0); MONOCYTES % (AUTO) 3.6 %; NEUTROPHILS # (AUTO) 7.2 10^3/uL (1.5-6.6); NEUTROPHILS % (AUTO) 91.9 %; PLT - PLATELET COUNT 97 10^3/uL (130-450); RED BLOOD COUNT 3.32 10^6/uL (4.20-5.40); RED CELL DISTRIBUTION WIDTH 13.5 % (12.0-15.0); WHITE BLOOD COUNT 7.8 x10^3/uL (4.8-10.8)
--- NOTE | 2018-04-17 15:22 | CT Report ---
Reason: Nausea, elevated LFTs Procedure Date: 04/17/2018 Accession Number: [id number] / [id number] Procedure: CT - Abdomen/Pelvis W/O CPT Code: FULL RESULT: EXAM: CT ABDOMEN AND PELVIS WITHOUT CONTRAST. EXAM DATE: 04/17/2018 09:10 AM. CLINICAL HISTORY: Nausea, elevated liver function tests. COMPARISONS: Chest angiogram 04/16/2018 8:04 PM. TECHNIQUE: Routine helical CT imaging was performed through the abdomen and pelvis. IV contrast: No. Enteric contrast: No. Reconstructions: Coronal and sagittal. In accordance with CT protocol optimization, one or more of the following dose reduction techniques were utilized for this exam: automated exposure control, adjustment of mA and/or KV based on patient size, or use of iterative reconstructive technique. FINDINGS: Lung Bases: Marked coronary calcifications, small bilateral pleural effusions as well as bibasilar consolidation with an appearance concerning for aspiration. Liver: Liver contains a right lobe cyst. Gallbladder/Bile Ducts: Unremarkable. Spleen: Normal. Pancreas: Normal. Adrenal Glands: Normal. Kidneys: Bilateral hyperdense urine excretion. Peritoneal Cavity/Bowel: Dilation of the rectum to 7.9 cm. No free fluid, free air or adenopathy. No masses or acute inflammatory process. Pelvic Organs: Normal. The bladder and visualized pelvic organs are within normal limits. Vasculature: No aneurysms or other significant abnormality. Bones: Grade 1 anterolisthesis of L3 on L4. No aggressive osseous lesions are identified. Other: None. IMPRESSION: Bibasilar consolidation concerning for aspiration. Dilated rectal vault to 7.9 cm, correlate to stercolitis. Hyperdense renal excretion, correlate to acute renal failure. [facility]
[2018-04-17] MEDS: PIPERACILLIN/TAZOBACTAM 2.25 GM in SODIUM CHLORIDE 0.9% MINIBAG 100 ML IV SCH (19:21)
[2018-04-17] MEDS: IPRATROPIUM/ALBUTEROL 3 ML NEB INH PRN (21:20)
[2018-04-17] MEDS: VANCOMYCIN INJ 1 GM in SODIUM CHLORIDE 0.9% 250 ML IV SCH (21:47)
[2018-04-18] MEDS: SODIUM CHLORIDE FLUSH 0.9% 10 ML SYRINGE IVP SCH ×4 (00:04→23:43)
[2018-04-18] MEDS: PIPERACILLIN/TAZOBACTAM 2.25 GM in SODIUM CHLORIDE 0.9% MINIBAG 100 ML IV SCH ×3 (01:07→12:36)
[2018-04-18] MEDS: HYDROcod/ACETAM 5/325 MG TABLET PO PRN ×5 (01:40→23:43)
[2018-04-18] MEDS: IPRATROPIUM/ALBUTEROL 3 ML NEB INH PRN ×3 (04:18→20:05)
[2018-04-18] MEDS: D5NS W/20 MEQ KCL 1,000 ML IV SCH (04:54)
[2018-04-18 06:03] LABS: BASOPHILS % (AUTO) 0.6 %; EOSINOPHILS % (AUTO) 0.4 %; HGB - HEMOGLOBIN 11.2 g/dL (12.0-16.0); LYMPHOCYTES # (AUTO) 0.8 10^3/uL (1.5-3.5); LYMPHOCYTES % (AUTO) 11.8 %; MEAN CORPUSCULAR HEMOGLOBIN 33.3 pg (27.0-31.0); MEAN CORPUSCULAR VOLUME 98.2 fL (81.0-99.0); MEAN PLATELET VOLUME 8.7 fL (7.9-10.8); MONOCYTES # (AUTO) 0.4 10^3/uL (0.0-1.0); MONOCYTES % (AUTO) 6.5 %; NEUTROPHILS # (AUTO) 5.3 10^3/uL (1.5-6.6); NEUTROPHILS % (AUTO) 80.7 %; PLT - PLATELET COUNT 85 10^3/uL (130-450); RED BLOOD COUNT 3.36 10^6/uL (4.20-5.40); WHITE BLOOD COUNT 6.6 x10^3/uL (4.8-10.8)
[2018-04-18 06:10] LABS: HB2 TOTAL 11.5 g/dL; HEMOGLOBIN A1C 0.38 g/dL; HEMOGLOBIN A1C % 5.2 % (4.6-6.2)
[2018-04-18] MEDS: PANTOPRAZOLE 40 MG TABLET PO SCH (06:24)
[2018-04-18 06:34] LABS: ALBUMIN 2.5 g/dL (3.2-5.5); BILIRUBIN,TOTAL 0.6 mg/dL (0.2-1.0); CALCIUM 8.4 mg/dL (8.5-10.3); CREATININE 0.8 mg/dL (0.4-1.0); CRP - C-REACTIVE PROTEIN 22.6 mg/dL (0-1.0); TOTAL PROTEIN 5.1 g/dL (6.7-8.2)
[2018-04-18] MEDS ORDERED: SODIUM CHLORIDE 0.9% 1,000 ML IV SCH ×3 (08:00→16:12)
[2018-04-18] MEDS: ACETAMINOPHEN 325 MG TABLET PO PRN (08:30)
[2018-04-18] MEDS: ENOXAPARIN 40 MG/0.4 ML SYRINGE SUBQ SCH (08:30)
[2018-04-18] MEDS: CITALOPRAM 10 MG TABLET PO SCH (08:30)
[2018-04-18] MEDS: POLYETHYLENE GLYCOL 3350 17 GM PACKET PO SCH (08:30)
[2018-04-18] MEDS ORDERED: ENOXAPARIN 40 MG/0.4 ML SYRINGE SUBQ SCH (09:00)
--- NOTE | 2018-04-18 16:15 | PROVIDER PROGRESS NOTE ---
Subjective - Prog Note Date Prog Note Date: 04/18/18 - Subjective Pt reports feeling: Improved Subjective: pt feel better, but report mild cough. pt's bacteremia sensitivity study is still pending. pt denies fever, chill, chest pain, SOB. Current Medications - Current Medications Current Medications: Active Medications Acetaminophen (Tylenol) 650 mg PO Q4HR PRN PRN Reason: Mild pain/Fever > 38C (100.4F) Last Admin: 04/18/18 08:30 Dose: 650 mg Hydrocodone Bitart/Acetaminophen ([place] 5/325) 1 tab PO Q4HR PRN PRN Reason: Pain 5 to 7 Last Admin: 04/18/18 12:34 Dose: 1 tab Albuterol/Ipratropium (Duoneb) 3 ml INH Q4HR PRN PRN Reason: Wheezing Last Admin: 04/18/18 15:40 Dose: 3 ml Citalopram Hydrobromide (Celexa) 40 mg PO DAILY REPLACED BY [facility] Last Admin: 04/18/18 08:30 Dose: 40 mg Enoxaparin Sodium (Lovenox) 40 mg SUBQ DAILY REPLACED BY [facility] Last Admin: 04/18/18 08:30 Dose: 40 mg Vancomycin HCl 1 gm/ Sodium (Chloride) 250 mls @ 167 mls/hr IV Q24H REPLACED BY [facility] Last Infusion: 04/18/18 00:04 Dose: Infused Piperacillin Sod/Tazobactam (Sod 2.25 gm/ Sodium Chloride) 100 mls @ 200 mls/hr IV Q6H REPLACED BY [facility] Last Infusion: 04/18/18 13:06 Dose: Infused Sodium Chloride (Normal Saline 0.9%) 1,000 mls @ 75 mls/hr IV .[id number] REPLACED BY [facility] Mineral Oil (Cavilon) 1 applic TOP PRN PRN PRN Reason: Skin Care Nicotine (Nicoderm) 1 patch TOP DAILY PRN PRN Reason: NEEDED PER PROVIDER ORDERS Pantoprazole Sodium (Protonix) 40 mg PO QDAC REPLACED BY [facility] Last Admin: 04/18/18 06:24 Dose: 40 mg Polyethylene Glycol (Miralax) 17 gm PO DAILY REPLACED BY [facility] Last Admin: 04/18/18 08:30 Dose: 17 gm Prochlorperazine Edisylate (Compazine Inj) 10 mg IVP Q6HR PRN PRN Reason: Nausea / Vomiting Last Admin: 04/17/18 07:55 Dose: 10 mg Sodium Chloride (Normal Saline Flush 0.9%) 10 ml IVP PRN PRN PRN Reason: NEEDED PER PROVIDER ORDERS Sodium Chloride (Normal Saline Flush 0.9%) 10 ml IVP 0100,0900,1700 KEESHA Last Admin: 04/18/18 07:18 Dose: Not Given Citalopram Hydrobromide [Celexa] 40 mg PO DAILY 08/12/13 Cyclobenzaprine [Flexeril] 10 mg PO DAILY 08/12/13 Hydrocodone/Acetaminophen [Hydrocodon-Acetaminophn 10-325] 1 each PO Q6HR PRN MDD TAKES 3-4 DAILY 08/12/13 Calcium Carbonate/Vitamin D3 [Calcium 600-Vit D3 500 Softgel] 1 cap PO DAILY 04/17/18 Cholecalciferol (Vitamin D3) [Vitamin D3] 500 unit PO DAILY 04/17/18 Multivitamin/Iron/Folic Acid [Centrum Adults Tablet] 1 each PO DAILY 04/17/18 [place]-3/Dha/Epa/Fish Oil [Fish Oil 1,000 mg Softgel] 1 each PO DAILY 04/17/18 Objective - Vital Signs/Intake & Output Reviewed Vital Signs: Yes Vital Signs: Vital Signs x48h Temp Pulse Pulse Resp BP Pulse Ox 04/18/18 15:48 37.1 C 90 18 101/70 90 L 04/18/18 15:40 86 18 04/18/18 13:00 36.6 C 94 16 129/70 92 04/18/18 09:30 92 16 Intake & Output: Intake & Output 04/15/18 04/16/18 04/17/18 04/18/18 23:59 23:59 23:59 23:59 Intake Total 3100 7286.667 3420.833 Output Total 650 600 Balance 3100 6636.667 2820.833 - Objective General Appearance: positive: No acute distress, Alert. negative: Lethargic Eyes Bilateral: positive: Normal inspection, PERRL, No lid inflammation, Conjunctivae nml ENT: positive: ENT inspection nml, Pharynx nml, No signs of dehydration. negative: Purulent nasal drainage, Pharyngeal erythema, Oral lesions Neck: positive: Nml inspection, Thyroid nml, No JVD, Trachea midline. negative: Thyromegaly, Lymphadenopathy (R), Lymphadenopathy (L), Stiff neck, Swelling/bruising, Tracheal deviation Respiratory: positive: Chest non-tender, No respiratory distress, Breath sounds nml. negative: Wheezes, Rales, Rhonchi Cardiovascular: positive: Regular rate & rhythm, No murmur, No gallop. negative: Irregularly irregular, Extrasystoles, Tachycardia, Bradycardia, JVD present, Systolic murmur, Diastolic murmur Peripheral Pulses: 2+ Radial (R), 2+ Radial (L), 2+ Posterior tibialis (R), 2+ Posterior tibialis (L) Abdomen: positive: Non-tender, No organomegaly, Nml bowel sounds, No distention. negative: Tenderness, Guarding, Rebound Back: positive: Nml inspection. negative: CVA tenderness (R), CVA tenderness (L) Skin: positive: Color nml, No rash, Warm, Dry. negative: Cyanosis, Diaphoresis, Pallor Extremities: positive: Non-tender, Full ROM, Nml appearance. negative: Calf tenderness, Joint swelling, Javy's sign/cords Neurologic/Psychiatric: positive: Oriented x3, Motor nml, Sensation nml, Mood/affect nml. negative: Weakness, Sensory loss, Facial droop, Slurred/abnml speech, Depressed mood/affect - Lab Results Fish Bones: 04/18/18 05:33 04/18/18 05:33 Other Labs: Lab Results x24hrs 04/18/18 04/18/18 04/18/18 Range/Units 13:58 08:55 05:33 WBC (4.8-10.8) x10^3/uL RBC (4.20-5.40) 10^6/uL Hgb (12.0-16.0) g/dL Hct (37.0-47.0) % MCV (81.0-99.0) fL MCH (27.0-31.0) pg MCHC (32.0-36.0) g/dL RDW (12.0-15.0) % Plt Count (130-450) 10^3/uL MPV (7.9-10.8) fL Neut # (Auto) (1.5-6.6) 10^3/uL Lymph # (Auto) (1.5-3.5) 10^3/uL [place] # (Auto) (0.0-1.0) 10^3/uL Eos # (Auto) (0.0-0.7) 10^3/uL Baso # (Auto) (0.0-0.1) 10^3/uL Absolute Nucleated RBC x10^3/uL Nucleated RBC % /100WBC ESR (0-30) mm/Hr Sodium (135-145) mmol/L Potassium (3.5-5.0) mmol/L Chloride (101-111) mmol/L Carbon Dioxide (21-32) mmol/L Anion Gap (6-13) BUN (6-20) mg/dL Creatinine (0.4-1.0) mg/dL Estimated GFR (MDRD) (>89) Glucose (70-100) mg/dL Glycated Hemoglobin 5.2 (4.6-6.2) % Estim Average Glucose 103 H (70-100) Lactic Acid (0.5-2.2) mmol/L Calcium (8.5-10.3) mg/dL Magnesium (1.7-2.8) mg/dL Total Bilirubin (0.2-1.0) mg/dL AST (10-42) IU/L ALT (10-60) IU/L Alkaline Phosphatase (42-121) IU/L Total Creatine Kinase (22-269) IU/L Troponin I 0.28 0.21 (<0.49) ng/mL C-Reactive Protein (0-1.0) mg/dL Total Protein (6.7-8.2) g/dL Albumin (3.2-5.5) g/dL Globulin (2.1-4.2) g/dL Albumin/Globulin Ratio (1.0-2.2) TSH (0.34-5.60) uIU/mL 04/18/18 04/18/18 04/18/18 Range/Units 05:33 05:33 05:33 WBC 6.6 (4.8-10.8) x10^3/uL RBC 3.36 L (4.20-5.40) 10^6/uL Hgb 11.2 L (12.0-16.0) g/dL Hct 33.0 L (37.0-47.0) % MCV 98.2 (81.0-99.0) fL MCH 33.3 H (27.0-31.0) pg MCHC 34.0 (32.0-36.0) g/dL RDW 14.0 (12.0-15.0) % Plt Count 85 L (130-450) 10^3/uL MPV 8.7 (7.9-10.8) fL Neut # (Auto) 5.3 (1.5-6.6) 10^3/uL Lymph # (Auto) 0.8 L (1.5-3.5) 10^3/uL [place] # (Auto) 0.4 (0.0-1.0) 10^3/uL Eos # (Auto) 0.0 (0.0-0.7) 10^3/uL Baso # (Auto) 0.0 (0.0-0.1) 10^3/uL Absolute Nucleated RBC 0.00 x10^3/uL Nucleated RBC % 0.0 /100WBC ESR 16 (0-30) mm/Hr Sodium 139 (135-145) mmol/L Potassium 3.9 (3.5-5.0) mmol/L Chloride 116 H (101-111) mmol/L Carbon Dioxide 17 L (21-32) mmol/L Anion Gap 6.0 (6-13) BUN 11 (6-20) mg/dL Creatinine 0.8 (0.4-1.0) mg/dL Estimated GFR (MDRD) 71 L (>89) Glucose 154 H (70-100) mg/dL Glycated Hemoglobin (4.6-6.2) % Estim Average Glucose (70-100) Lactic Acid (0.5-2.2) mmol/L Calcium 8.4 L (8.5-10.3) mg/dL Magnesium (1.7-2.8) mg/dL Total Bilirubin 0.6 (0.2-1.0) mg/dL AST 119 H (10-42) IU/L ALT 102 H (10-60) IU/L Alkaline Phosphatase 92 (42-121) IU/L Total Creatine Kinase (22-269) IU/L Troponin I (<0.49) ng/mL C-Reactive Protein 22.6 H (0-1.0) mg/dL Total Protein 5.1 L (6.7-8.2) g/dL Albumin 2.5 L (3.2-5.5) g/dL Globulin 2.6 (2.1-4.2) g/dL Albumin/Globulin Ratio 1.0 (1.0-2.2) TSH (0.34-5.60) uIU/mL 04/17/18 04/17/18 04/17/18 Range/Units 18:05 18:05 18:05 WBC (4.8-10.8) x10^3/uL RBC (4.20-5.40) 10^6/uL Hgb (12.0-16.0) g/dL Hct (37.0-47.0) % MCV (81.0-99.0) fL MCH (27.0-31.0) pg MCHC (32.0-36.0) g/dL RDW (12.0-15.0) % Plt Count (130-450) 10^3/uL MPV (7.9-10.8) fL Neut # (Auto) (1.5-6.6) 10^3/uL Lymph # (Auto) (1.5-3.5) 10^3/uL [place] # (Auto) (0.0-1.0) 10^3/uL Eos # (Auto) (0.0-0.7) 10^3/uL Baso # (Auto) (0.0-0.1) 10^3/uL Absolute Nucleated RBC x10^3/uL Nucleated RBC % /100WBC ESR (0-30) mm/Hr Sodium (135-145) mmol/L Potassium (3.5-5.0) mmol/L Chloride (101-111) mmol/L Carbon Dioxide (21-32) mmol/L Anion Gap (6-13) BUN (6-20) mg/dL Creatinine (0.4-1.0) mg/dL Estimated GFR (MDRD) (>89) Glucose (70-100) mg/dL Glycated Hemoglobin (4.6-6.2) % Estim Average Glucose (70-100) Lactic Acid 1.8 (0.5-2.2) mmol/L Calcium (8.5-10.3) mg/dL Magnesium (1.7-2.8) mg/dL Total Bilirubin (0.2-1.0) mg/dL AST (10-42) IU/L ALT (10-60) IU/L Alkaline Phosphatase (42-121) IU/L Total Creatine Kinase 988 H (22-269) IU/L Troponin I (<0.49) ng/mL C-Reactive Protein (0-1.0) mg/dL Total Protein (6.7-8.2) g/dL Albumin (3.2-5.5) g/dL Globulin (2.1-4.2) g/dL Albumin/Globulin Ratio (1.0-2.2) TSH 2.86 (0.34-5.60) uIU/mL 04/17/18 04/17/18 Range/Units 18:05 18:05 WBC (4.8-10.8) x10^3/uL RBC (4.20-5.40) 10^6/uL Hgb (12.0-16.0) g/dL Hct (37.0-47.0) % MCV (81.0-99.0) fL MCH (27.0-31.0) pg MCHC (32.0-36.0) g/dL RDW (12.0-15.0) % Plt Count (130-450) 10^3/uL MPV (7.9-10.8) fL Neut # (Auto) (1.5-6.6) 10^3/uL Lymph # (Auto) (1.5-3.5) 10^3/uL [place] # (Auto) (0.0-1.0) 10^3/uL Eos # (Auto) (0.0-0.7) 10^3/uL Baso # (Auto) (0.0-0.1) 10^3/uL Absolute Nucleated RBC x10^3/uL Nucleated RBC % /100WBC ESR (0-30) mm/Hr Sodium (135-145) mmol/L Potassium (3.5-5.0) mmol/L Chloride (101-111) mmol/L Carbon Dioxide (21-32) mmol/L Anion Gap (6-13) BUN (6-20) mg/dL Creatinine (0.4-1.0) mg/dL Estimated GFR (MDRD) (>89) Glucose (70-100) mg/dL Glycated Hemoglobin (4.6-6.2) % Estim Average Glucose (70-100) Lactic Acid (0.5-2.2) mmol/L Calcium (8.5-10.3) mg/dL Magnesium 1.8 (1.7-2.8) mg/dL Total Bilirubin (0.2-1.0) mg/dL AST (10-42) IU/L ALT (10-60) IU/L Alkaline Phosphatase (42-121) IU/L Total Creatine Kinase (22-269) IU/L Troponin I 0.26 (<0.49) ng/mL C-Reactive Protein (0-1.0) mg/dL Total Protein (6.7-8.2) g/dL Albumin (3.2-5.5) g/dL Globulin (2.1-4.2) g/dL Albumin/Globulin Ratio (1.0-2.2) TSH (0.34-5.60) uIU/mL ABX Reporting Has patient been on IV antibiotics over the past 48 hours?: Yes Assessment/Plan - Problem List (1) Blood bacterial culture positive Impression: 1) Blood bacterial culture positive bacteremia may drive from Pneumonia, sensitivity study is still pending, will followup continue Zosyn and Vanco (2) Bilateral pneumonia pt report she feels better, but report mild new onset of cough. order CXR, followup continue antibiotics mild IVF of NS lab and vital monitor (3) Tobacco dependence Impression: continue a nicotine patch, PRN. advise pt quit Tobacco (4) Acute renal injury Impression: improved as pt's baseline slight hydration, precaution of fluid overload. (5) Hypotension resolved,bstable (6) Elevated liver enzymes slight elevated liver enzyme, unknown etiology. CT of abdomen indicates unrema rkable (7) Elevated troponin continue stable troponin but elevated. pt denies chest pain, palpitation, denies cardiac distress. EKG is unremarkable. but pt had elevated CK. pt had MIL at this time. Unknown etiology of elevate troponin and total CK continue gently IVF of NS, precaution of fluid overload continue tele and vital monitor
--- NOTE | 2018-04-18 16:55 | XRAY Report ---
Reason: cough Procedure Date: 04/18/2018 Accession Number: [id number] / [id number] Procedure: XR - Chest 1 View X-Ray CPT Code: 56371 FULL RESULT: EXAM: CHEST RADIOGRAPHY EXAM DATE: 04/18/2018 04:49 PM. CLINICAL HISTORY: Cough for 1 day. COMPARISON: CHEST 2 VIEW 04/16/2018 6:06 PM. TECHNIQUE: 1 view. FINDINGS: Lungs/Pleura: New bibasilar and bilateral upper lobe airspace infiltrates. New moderate bilateral perihilar interstitial infiltrates. New mild blunting left lateral costophrenic angle. Normal lung volumes. Mediastinum: Within exam limitations, the cardiomediastinal contour is normal. Other: None. IMPRESSION: New extensive bilateral lung infiltrates and small left pleural effusion. RADIA
[2018-04-18] MEDS: PIPERACILLIN/TAZOBACTAM 3.375 GM in SODIUM CHLORIDE 0.9% MINIBAG 100 ML IV SCH ×2 (18:12→23:43)
[2018-04-18] MEDS: VANCOMYCIN INJ 1 GM in SODIUM CHLORIDE 0.9% 250 ML IV SCH (21:56)
[2018-04-18] MEDS ORDERED: FUROSEMIDE 20 MG/2 ML VIAL IVP STA (23:01)
[2018-04-19] MEDS: IPRATROPIUM/ALBUTEROL 3 ML NEB INH PRN ×4 (00:07→20:27)
[2018-04-19] MEDS: HYDROcod/ACETAM 5/325 MG TABLET PO PRN ×4 (03:52→23:30)
[2018-04-19 06:04] LABS: BASOPHILS % (AUTO) 0.2 %; EOSINOPHILS % (AUTO) 0.1 %; HGB - HEMOGLOBIN 11.8 g/dL (12.0-16.0); LYMPHOCYTES # (AUTO) 0.9 10^3/uL (1.5-3.5); MEAN CORPUSCULAR HEMOGLOBIN 33.6 pg (27.0-31.0); MEAN CORPUSCULAR HGB CONC 33.9 g/dL (32.0-36.0); MEAN CORPUSCULAR VOLUME 99.1 fL (81.0-99.0); MEAN PLATELET VOLUME 8.9 fL (7.9-10.8); MONOCYTES # (AUTO) 0.7 10^3/uL (0.0-1.0); MONOCYTES % (AUTO) 7.7 %; NEUTROPHILS # (AUTO) 7.7 10^3/uL (1.5-6.6); PLT - PLATELET COUNT 87 10^3/uL (130-450); RED CELL DISTRIBUTION WIDTH 14.2 % (12.0-15.0); WHITE BLOOD COUNT 9.4 x10^3/uL (4.8-10.8)
[2018-04-19] MEDS: ACETAMINOPHEN 325 MG TABLET PO PRN (06:19)
[2018-04-19] MEDS: PANTOPRAZOLE 40 MG TABLET PO SCH (06:19)
[2018-04-19] MEDS: PIPERACILLIN/TAZOBACTAM 3.375 GM in SODIUM CHLORIDE 0.9% MINIBAG 100 ML IV SCH ×3 (06:20→19:55)
[2018-04-19] MEDS: CITALOPRAM 10 MG TABLET PO SCH (08:22)
[2018-04-19] MEDS: ENOXAPARIN 40 MG/0.4 ML SYRINGE SUBQ SCH (08:24)
[2018-04-19] MEDS: POLYETHYLENE GLYCOL 3350 17 GM PACKET PO SCH (08:24)
[2018-04-19] MEDS: SODIUM CHLORIDE FLUSH 0.9% 10 ML SYRINGE IVP SCH ×2 (08:24→16:36)
[2018-04-19] MEDS ORDERED: VANCOMYCIN INJ 1.5 GM in SODIUM CHLORIDE 0.9% 500 ML IV SCH (13:00)
[2018-04-19] MEDS ORDERED: SODIUM CHLORIDE 0.9% 500 ML IV ONE (13:09)
--- NOTE | 2018-04-19 15:33 | PROVIDER PROGRESS NOTE ---
Subjective - Prog Note Date Prog Note Date: 04/19/18 - Subjective Pt reports feeling: Improved Subjective: pt report she feel better today, no fever or chill today. she denies CP, palpitation. but pt present decreased O2 sats, CXR reveals extensive pneumonia Current Medications - Current Medications Current Medications: Active Medications Acetaminophen (Tylenol) 650 mg PO Q4HR PRN PRN Reason: Mild pain/Fever > 38C (100.4F) Last Admin: 04/19/18 06:19 Dose: 650 mg Hydrocodone Bitart/Acetaminophen ([place] 5/325) 1 tab PO Q4HR PRN PRN Reason: Pain 5 to 7 Last Admin: 04/19/18 14:36 Dose: 1 tab Albuterol/Ipratropium (Duoneb) 3 ml INH Q4HR PRN PRN Reason: Wheezing Last Admin: 04/19/18 14:47 Dose: 3 ml Citalopram Hydrobromide (Celexa) 40 mg PO DAILY [facility] Last Admin: 04/19/18 08:22 Dose: 40 mg Cyclobenzaprine HCl (Flexeril) 10 mg PO DAILY [facility] Last Admin: 04/19/18 16:46 Dose: 10 mg Enoxaparin Sodium (Lovenox) 40 mg SUBQ DAILY [facility] Last Admin: 04/19/18 08:24 Dose: 40 mg Furosemide (Lasix) 20 mg PO DAILY [facility] Piperacillin Sod/Tazobactam (Sod 3.375 gm/ Sodium Chloride) 100 mls @ 200 mls/hr IV Q6H [facility] Last Infusion: 04/19/18 13:16 Dose: Infused Vancomycin HCl 1.25 gm/ Sodium (Chloride) 250 mls @ 167 mls/hr IV Q24H [facility] Mineral Oil (Cavilon) 1 applic TOP PRN PRN PRN Reason: Skin Care Nicotine (Nicoderm) 1 patch TOP DAILY PRN PRN Reason: NEEDED PER PROVIDER ORDERS Pantoprazole Sodium (Protonix) 40 mg PO QDAC [facility] Last Admin: 04/19/18 06:19 Dose: 40 mg Polyethylene Glycol (Miralax) 17 gm PO DAILY [facility] Last Admin: 04/19/18 08:24 Dose: Not Given Prochlorperazine Edisylate (Compazine Inj) 10 mg IVP Q6HR PRN PRN Reason: Nausea / Vomiting Last Admin: 04/17/18 07:55 Dose: 10 mg Saccharomyces Boulardii (Florastor) 250 mg PO BIDWM [facility] Last Admin: 04/19/18 17:12 Dose: 250 mg Sodium Chloride (Normal Saline Flush 0.9%) 10 ml IVP PRN PRN PRN Reason: NEEDED PER PROVIDER ORDERS Sodium Chloride (Normal Saline Flush 0.9%) 10 ml IVP 0100,0900,1700 [facility] Last Admin: 04/19/18 16:36 Dose: 10 ml Citalopram Hydrobromide [Celexa] 40 mg PO DAILY 08/12/13 Cyclobenzaprine [Flexeril] 10 mg PO DAILY 08/12/13 Hydrocodone/Acetaminophen [Hydrocodon-Acetaminophn 10-325] 1 each PO Q6HR PRN MDD TAKES 3-4 DAILY 08/12/13 Calcium Carbonate/Vitamin D3 [Calcium 600-Vit D3 500 Softgel] 1 cap PO DAILY 04/17/18 Cholecalciferol (Vitamin D3) [Vitamin D3] 500 unit PO DAILY 04/17/18 Multivitamin/Iron/Folic Acid [Centrum Adults Tablet] 1 each PO DAILY 04/17/18 [place]-3/Dha/Epa/Fish Oil [Fish Oil 1,000 mg Softgel] 1 each PO DAILY 04/17/18 Objective - Vital Signs/Intake & Output Reviewed Vital Signs: Yes Vital Signs: Vital Signs x48h Temp Pulse Pulse Resp BP Pulse Ox 04/19/18 14:48 90 20 04/19/18 11:09 37.1 C 98 18 142/73 H 94 04/19/18 09:39 90 20 04/19/18 09:34 24 87 L 04/19/18 07:55 36.8 C 89 18 131/69 H 92 Intake & Output: Intake & Output 04/16/18 04/17/18 04/18/18 04/19/18 23:59 23:59 23:59 23:59 Intake Total 3100 7286.667 4438.083 867.917 Output Total 366 061 2309 Balance 3100 6636.667 3838.083 -882.083 - Objective General Appearance: positive: No acute distress, Alert. negative: Lethargic Eyes Bilateral: positive: Normal inspection, PERRL, No lid inflammation, Conjunctivae nml ENT: positive: ENT inspection nml, Pharynx nml, No signs of dehydration. negative: Purulent nasal drainage, Pharyngeal erythema, Oral lesions Neck: positive: Nml inspection, Thyroid nml, No JVD, Trachea midline. negative: Thyromegaly, Lymphadenopathy (R), Lymphadenopathy (L), Stiff neck, Swelling/bruising, Tracheal deviation Respiratory: positive: Chest non-tender, No respiratory distress, Breath sounds nml. negative: Wheezes, Rales, Rhonchi Cardiovascular: positive: Regular rate & rhythm, No murmur, No gallop. negative: Irregularly irregular, Extrasystoles, Tachycardia, Bradycardia, JVD present, Systolic murmur, Diastolic murmur Peripheral Pulses: 2+ Radial (R), 2+ Radial (L), 2+ Dorsalis pedis (R), 2+ Dorsalis pedis (L) Abdomen: positive: Non-tender, No organomegaly, Nml bowel sounds, No distention. negative: Tenderness, Guarding, Rebound Back: positive: Nml inspection. negative: CVA tenderness (R), CVA tenderness (L) Skin: positive: Color nml, No rash, Warm, Dry. negative: Cyanosis, Diaphoresis, Pallor Extremities: positive: Non-tender, Full ROM, Nml appearance. negative: Calf tenderness, Joint swelling, Javy's sign/cords Neurologic/Psychiatric: positive: Oriented x3, Motor nml, Sensation nml, Mood/affect nml. negative: Weakness, Sensory loss, Facial droop, Slurred/abnml speech, Depressed mood/affect - Lab Results Fish Bones: 04/19/18 05:54 04/18/18 05:33 Other Labs: Lab Results x24hrs 04/19/18 04/19/18 04/19/18 Range/Units 08:03 05:54 05:54 WBC (4.8-10.8) x10^3/uL RBC (4.20-5.40) 10^6/uL Hgb (12.0-16.0) g/dL Hct (37.0-47.0) % MCV (81.0-99.0) fL MCH (27.0-31.0) pg MCHC (32.0-36.0) g/dL RDW (12.0-15.0) % Plt Count (130-450) 10^3/uL MPV (7.9-10.8) fL Neut # (Auto) (1.5-6.6) 10^3/uL Lymph # (Auto) (1.5-3.5) 10^3/uL [place] # (Auto) (0.0-1.0) 10^3/uL Eos # (Auto) (0.0-0.7) 10^3/uL Baso # (Auto) (0.0-0.1) 10^3/uL Absolute Nucleated RBC x10^3/uL Nucleated RBC % /100WBC ESR (0-30) mm/Hr Lactic Acid 1.3 (0.5-2.2) mmol/L Total Creatine Kinase 121 (22-269) IU/L C-Reactive Protein (0-1.0) mg/dL B-Natriuretic Peptide 326 H (5-100) pg/mL 04/19/18 04/19/18 04/19/18 Range/Units 05:54 05:54 05:54 WBC 9.4 (4.8-10.8) x10^3/uL RBC 3.50 L (4.20-5.40) 10^6/uL Hgb 11.8 L (12.0-16.0) g/dL Hct 34.7 L (37.0-47.0) % MCV 99.1 H (81.0-99.0) fL MCH 33.6 H (27.0-31.0) pg MCHC 33.9 (32.0-36.0) g/dL RDW 14.2 (12.0-15.0) % Plt Count 87 L (130-450) 10^3/uL MPV 8.9 (7.9-10.8) fL Neut # (Auto) 7.7 H (1.5-6.6) 10^3/uL Lymph # (Auto) 0.9 L (1.5-3.5) 10^3/uL [place] # (Auto) 0.7 (0.0-1.0) 10^3/uL Eos # (Auto) 0.0 (0.0-0.7) 10^3/uL Baso # (Auto) 0.0 (0.0-0.1) 10^3/uL Absolute Nucleated RBC 0.00 x10^3/uL Nucleated RBC % 0.0 /100WBC ESR 37 H (0-30) mm/Hr Lactic Acid (0.5-2.2) mmol/L Total Creatine Kinase (22-269) IU/L C-Reactive Protein 22.3 H (0-1.0) mg/dL B-Natriuretic Peptide (5-100) pg/mL ABX Reporting Has patient been on IV antibiotics over the past 48 hours?: Yes Assessment/Plan - Problem List (1) Blood bacterial culture positive Impression: sensitivity show most antibiotics is sensitive to [place] for pt. will continue Vancomycin and reach therapeutics concentration for pt pt develop HCAP, add zosyn bacteremia may drive from Pneumonia, sensitivity study is still pending, will followup continue Zosyn and Vanco (2) Bilateral pneumonia 04/19 CXR reveals extensive pneumonia, HCAP, increase Vancomycin to reach therapeutic dosage continue Zosyn and Vancomycin supple O2 as needed INH treatment as needed CXR reveals mild pleural effusion, add 20 mg Lasix, stop IVF of NS pt report she feels better, but report mild new onset of cough. order CXR, followup continue antibiotics mild IVF of NS lab and vital monitor (3) Tobacco dependence Impression: continue a nicotine patch, PRN. advise pt quit Tobacco (4) Acute renal injury Impression: improved as pt's baseline slight hydration, precaution of fluid overload. (5) Hypotension resolved,stable (6) Elevated liver enzymes slight elevated liver enzyme, unknown etiology. CT of abdomen indicates unremarkable (7) Elevated troponin 04/19 denies chest pain, troponin is unchanged. continue tele, vital monitor continue stable troponin but elevated. pt denies chest pain, palpitation, denies cardiac distress. EKG is unremarkable. but pt had elevated CK. pt had MIL at this time. Unknown etiology of elevate troponin and total CK continue gently IVF of NS, precaution of fluid overload continue tele and vital monitor
[2018-04-19] MEDS: CYCLOBENZAPRINE 10 MG TABLET PO SCH (16:46)
[2018-04-19] MEDS: SACCHAROMYCES BOULARDII 250 MG CAPSULE PO SCH (17:12)
[2018-04-19] MEDS: FUROSEMIDE 20 MG TABLET PO SCH (18:15)
[2018-04-19] MEDS ORDERED: VANCOMYCIN INJ 1.25 GM in SODIUM CHLORIDE 0.9% 250 ML IV SCH (22:00)
[2018-04-19] MEDS ORDERED: FUROSEMIDE 20 MG/2 ML VIAL IVP SCH (22:38)
--- NOTE | 2018-04-19 23:41 | XRAY Report ---
Reason: Increasing hypoxia Procedure Date: 04/19/2018 Accession Number: [id number] / [id number] Procedure: XR - Chest 1 View X-Ray CPT Code: 26728 FULL RESULT: EXAM: CHEST RADIOGRAPHY EXAM DATE: 04/19/2018 11:13 PM. CLINICAL HISTORY: Increasing hypoxia. COMPARISON: CHEST 1 VIEW 04/18/2018 4:29 PM. TECHNIQUE: 1 view. FINDINGS: Lungs/Pleura: Increased bilateral perihilar opacities. Possible trace pleural effusions. No pneumothorax. Mediastinum: Within exam limitations, the cardiomediastinal contour is normal. Other: None. IMPRESSION: 1. Increased bilateral perihilar opacities with possible trace effusions. RAD[facility]
[2018-04-20] MEDS: PIPERACILLIN/TAZOBACTAM 3.375 GM in SODIUM CHLORIDE 0.9% MINIBAG 100 ML IV SCH ×3 (01:11→12:31)
[2018-04-20] MEDS: SODIUM CHLORIDE FLUSH 0.9% 10 ML SYRINGE IVP SCH ×2 (02:12→09:12)
[2018-04-20] MEDS: SODIUM CHLORIDE FLUSH 0.9% 10 ML SYRINGE IVP PRN ×2 (02:17→06:57)
[2018-04-20] MEDS: IPRATROPIUM/ALBUTEROL 3 ML NEB INH PRN ×3 (04:57→12:27)
[2018-04-20 05:00] LABS: BASOPHILS % (AUTO) 0.1 %; EOSINOPHILS % (AUTO) 0.1 %; HGB - HEMOGLOBIN 11.7 g/dL (12.0-16.0); LYMPHOCYTES # (AUTO) 1.2 10^3/uL (1.5-3.5); MEAN CORPUSCULAR HEMOGLOBIN 33.1 pg (27.0-31.0); MEAN CORPUSCULAR HGB CONC 33.8 g/dL (32.0-36.0); MEAN CORPUSCULAR VOLUME 97.8 fL (81.0-99.0); MEAN PLATELET VOLUME 8.7 fL (7.9-10.8); MONOCYTES # (AUTO) 1.1 10^3/uL (0.0-1.0); MONOCYTES % (AUTO) 9.3 %; NEUTROPHILS # (AUTO) 9.9 10^3/uL (1.5-6.6); NEUTROPHILS % (AUTO) 80.5 %; PLT - PLATELET COUNT 111 10^3/uL (130-450); RED BLOOD COUNT 3.55 10^6/uL (4.20-5.40); RED CELL DISTRIBUTION WIDTH 14.1 % (12.0-15.0); WHITE BLOOD COUNT 12.3 x10^3/uL (4.8-10.8)
[2018-04-20 05:30] LABS: ALBUMIN 2.5 g/dL (3.2-5.5); ALBUMIN/GLOBULIN RATIO 0.8 (1.0-2.2); BILIRUBIN,TOTAL 1.4 mg/dL (0.2-1.0); CALCIUM 8.9 mg/dL (8.5-10.3); CREATININE 0.9 mg/dL (0.4-1.0); MAGNESIUM 1.6 mg/dL (1.7-2.8); TOTAL PROTEIN 5.7 g/dL (6.7-8.2)
[2018-04-20] MEDS: PANTOPRAZOLE 40 MG TABLET PO SCH (06:56)
[2018-04-20] MEDS ORDERED: MAGNESIUM SULFATE 1 GM in SODIUM CHLORIDE 0.9% 50 ML IV ONE (08:00)
[2018-04-20] MEDS ORDERED: POTASSIUM CHLORIDE 20 MEQ TABLET PO ONE (08:15)
[2018-04-20] MEDS ORDERED: CYCLOBENZAPRINE 10 MG TABLET PO SCH (09:00)
[2018-04-20] MEDS: SACCHAROMYCES BOULARDII 250 MG CAPSULE PO SCH (09:11)
[2018-04-20] MEDS: CYCLOBENZAPRINE 10 MG TABLET PO SCH (09:11)
[2018-04-20] MEDS: FUROSEMIDE 20 MG TABLET PO SCH (09:12)
[2018-04-20] MEDS: CITALOPRAM 10 MG TABLET PO SCH (09:12)
[2018-04-20] MEDS: POLYETHYLENE GLYCOL 3350 17 GM PACKET PO SCH (09:13)
[2018-04-20] MEDS: ENOXAPARIN 40 MG/0.4 ML SYRINGE SUBQ SCH (09:13)
[2018-04-20 11:19] LABS: ABG BASE EXCESS -2.6 mmol/L (-2.0-3.0); ABG OXYGEN SATURATION 97 % (94-98); ABG PH 7.55 (7.35-7.45); ABG PO2 85 mmHg (80-100); ABG TCO2 18.7 MMOL/L (21.0-29.0); ALLEN TEST POSITIVE
[2018-04-20 11:21] LABS: ABG PCO2 21 mmHg (34-45)
[2018-04-20] MEDS: HYDROcod/ACETAM 5/325 MG TABLET PO PRN (13:27)
[2018-04-20] MEDS ORDERED: oxyCODONE 5 MG TABLET PO PRN (14:14)
[2018-04-20 14:27] VITALS: BP 137/76
--- NOTE | 2018-04-20 14:32 | DISCHARGE SUMMARY ---
Discharge Summary Discharge Date: 04/20/18 Discharging Provider: CARRILLO Primary Care Provider: mohan Chris Condition at Discharge: Serious Discharge Facility Name: [facility] - DIAGNOSES Admission Diagnoses: (1) Blood bacterial culture positive (2) Bilateral pneumonia (3) Tobacco dependence (4) Acute renal injury (5) Hypotension (6) Elevated liver enzymes (7) Elevated troponin Discharge Diagnoses with Status of Each Condition: (1) Blood bacterial culture positive blood culture positive Staphy aureus, sensitive to most antibiotics. Unknown infection resource. ECHO reveals no endocarditis. pt develop fever, and new blood culture is pending now. pt also developed extensive pneumonia, and hypoxia. pt is transferred to [place] for advance care. (2) Bilateral pneumonia new developed extensive pneumonia, and hypoxia, and fever. pt was treated with Zosyn and Vancomycin. pt is transferred to [place] for advance care. (3) Tobacco dependence pt state she will quit tobacco smoking (4) Acute renal injury resolved (5) Hypotension resolved (6) Elevated liver enzymes slight elevated, stable (7) Elevated troponin stable, denies chest pain, EKG unremarkable, ECHO reveals EF 60-65%. (8) hypoxia pt require 10 litter of O2, pt has extensive pneumonia. pt is transferred to [place] for advance care. (9) fever T 38.6 on last night, new blood culture is pending. pt is treated with Zosyn and vancomycin, pt is transferred to [place] for advance care. - HPI History of Present Illness: pt was admitted for chill, shaking and confused. then pt was found to have bacteremia. - HOSPITAL COURSE Hospital Course: pt was admitted for chill, shaking and confused. then pt was found to have bacteremia. blood culture positive Staphy aureus, sensitive to most antibiotics. Unknown infection resource. UA and CT of abdomen unremarkable. ECHO reveals no endocarditis. pt was treated with Zosyn and Vancomycin. pt new develop fever, and new blood culture is pending now. pt also developed extensive pneumonia, and hypoxia require 10 liter of O2. pt is transferred to [place] for advance care. - ALLERGIES Allergies/Adverse Reactions: Allergies Allergy/AdvReac Type Severity Reaction Status Date / Time Sulfa (Sulfonamide Allergy Intermediate Rash Verified 04/16/18 16:55 Antibiotics) - MEDICATIONS Home Medications: Ambulatory Orders Medication Instructions Recorded Confirmed Citalopram Hydrobromide [Celexa] 40 mg PO DAILY 08/12/13 04/17/18 Cyclobenzaprine [Flexeril] 10 mg PO DAILY 08/12/13 04/17/18 Hydrocodone/Acetaminophen 1 each PO Q6HR PRN MDD TAKES 3-4 08/12/13 04/17/18 [Hydrocodon-Acetaminophn 10-325] DAILY Calcium Carbonate/Vitamin D3 1 cap PO DAILY 04/17/18 04/17/18 [Calcium 600-Vit D3 500 Softgel] Cholecalciferol (Vitamin D3) 500 unit PO DAILY 04/17/18 04/17/18 [Vitamin D3] Multivitamin/Iron/Folic Acid 1 each PO DAILY 04/17/18 04/17/18 [Centrum Adults Tablet] Sheridan-3/Dha/Epa/Fish Oil [Fish Oil 1 each PO DAILY 04/17/18 04/17/18 1,000 mg Softgel] - PHYSICAL EXAM AT DISCHARGE General Appearance: positive: No acute distress, Alert. negative: Lethargic Eyes Bilateral: positive: Normal inspection, PERRL, No lid inflammation, C onjunctivae nml ENT: positive: ENT inspection nml, Pharynx nml, No signs of dehydration. negative: Purulent nasal drainage, Pharyngeal erythema, Oral lesions Neck: positive: Nml inspection, Thyroid nml, No JVD, Trachea midline. negative: Thyromegaly, Lymphadenopathy (R), Lymphadenopathy (L), Stiff neck, Swelling/bruising, Tracheal deviation Respiratory: positive: Chest non-tender, Rhonchi. negative: No respiratory dist ress, Breath sounds nml, Wheezes, Rales Cardiovascular: positive: Regular rate & rhythm, No murmur, No gallop. negative: Irregularly irregular, Extrasystoles, Tachycardia, Bradycardia, JVD present, Systolic murmur, Diastolic murmur Peripheral Pulses: positive: 2+ Abdomen: positive: Non-tender, No organomegaly, Nml bowel sounds, No distention. negative: Tenderness, Guarding, Rebound Back: positive: Nml inspection. negative: CVA tenderness (R), CVA tenderness (L) Skin: positive: Color nml, No rash, Warm, Dry. negative: Cyanosis, Diaphoresis, Pallor Extremities: positive: Non-tender, Full ROM, Nml appearance. negative: Calf tenderness, Joint swelling, Javy's sign/cords Neurologic/Psychiatric: positive: Oriented x3, Motor nml, Sensation nml, Mood/affect nml. negative: Weakness, Sensory loss, Facial droop, Slurred/abnml speech, Depressed mood/affect - LABS Result Diagrams: 04/20/18 04:35 04/20/18 04:35 - FOLLOW UP Follow Up: pt is transferred to [facility] for advance care - TIME SPENT Time Spent in Discharge (Minutes): 50
== END 2018-04-20 15:00 | disposition short-term general hospital (02) | DRG 314 ==
LOC: ED 16:48 → MS2 21:52 → OBSVTOIN 04-17 04:17
PROVIDERS: ADMIT Internal Medicine; ATTEND Nurse Practitioner Gerontology
DX: R41.0 Disorientation, unspecified (principal); I95.0 Idiopathic hypotension; I95.9 Hypotension, unspecified; A41.01 Sepsis due to Methicillin susceptible Staphylococcus aureus; R00.0 Tachycardia, unspecified; R74.8 Abnormal levels of other serum enzymes; R79.89 Other specified abnormal findings of blood chemistry; R94.31 Abnormal electrocardiogram [ECG] [EKG]; J15.0 Pneumonia due to Klebsiella pneumoniae; M54.2 Cervicalgia; Z79.899 Other long term (current) drug therapy; J15.211 Pneumonia due to Methicillin susceptible Staphylococcus aureus; B37.1 Pulmonary candidiasis; R78.81 Bacteremia; N17.9 Acute kidney failure, unspecified; R09.02 Hypoxemia; E86.0 Dehydration; F17.210 Nicotine dependence, cigarettes, uncomplicated; M54.5 Low back pain
CPT/HCPCS: 36415; 36600; 70450; 71045; 71046; 71275; 74176; 80053; 80202; 80306; 80307; 80320; 81001; 81003; 82550; 82803; 83036; 83605; 83690; 83735; 83880; 84443; 84484; 85025; 85610; 85651; 86140; 87040; 87070; 87077; 87086; 87181; 87205; 87275; 87276; 93005; 93306; 94640; 96361; 96365; 96367; 99284; 99285

== ENCOUNTER 2018-05-01 10:25 | Outpatient (CLI) | payer MEDICARE, OTHER ==
[2018-05-01 10:56] LABS: BASOPHILS # (AUTO) 0.1 10^3/uL (0.0-0.1); BASOPHILS % (AUTO) 0.4 %; EOSINOPHILS # (AUTO) 0.1 10^3/uL (0.0-0.7); EOSINOPHILS % (AUTO) 0.8 %; HGB - HEMOGLOBIN 9.6 g/dL (12.0-16.0); LYMPHOCYTES # (AUTO) 1.9 10^3/uL (1.5-3.5); LYMPHOCYTES % (AUTO) 12.7 %; MEAN CORPUSCULAR HEMOGLOBIN 33.1 pg (27.0-31.0); MEAN CORPUSCULAR HGB CONC 33.1 g/dL (32.0-36.0); MEAN CORPUSCULAR VOLUME 100.1 fL (81.0-99.0); MEAN PLATELET VOLUME 7.2 fL (7.9-10.8); MONOCYTES # (AUTO) 0.9 10^3/uL (0.0-1.0); MONOCYTES % (AUTO) 6.1 %; NEUTROPHILS # (AUTO) 12.3 10^3/uL (1.5-6.6); PLT - PLATELET COUNT 524 10^3/uL (130-450); RED BLOOD COUNT 2.88 10^6/uL (4.20-5.40); RED CELL DISTRIBUTION WIDTH 14.9 % (12.0-15.0); WHITE BLOOD COUNT 15.3 x10^3/uL (4.8-10.8)
[2018-05-01 11:11] LABS: ALBUMIN 2.7 g/dL (3.2-5.5); ALBUMIN/GLOBULIN RATIO 0.8 (1.0-2.2); ALKALINE PHOSPHATASE 101 IU/L (42-121); ALT ALANINE AMINOTRANSFERASE < 10 IU/L (10-60); AST ASPARTATE AMINOTRANSFERASE 19 IU/L (10-42); BILIRUBIN,TOTAL 0.5 mg/dL (0.2-1.0); BUN - BLOOD UREA NITROGEN 14 mg/dL (6-20); CALCIUM 8.8 mg/dL (8.5-10.3); CARBON DIOXIDE - CO2 28 mmol/L (21-32); CHLORIDE 105 mmol/L (101-111); GFR - MDRD 55 (>89); GLUCOSE 88 mg/dL (70-100); SODIUM 138 mmol/L (135-145); TOTAL PROTEIN 5.9 g/dL (6.7-8.2)
== END 2018-05-01 10:26 | disposition home or self-care (01) ==
LOC: LAB 10:25
PROVIDERS: ATTEND Physician Assistant Medical
DX: R60.0 Localized edema (principal); R06.00 Dyspnea, unspecified; J18.9 Pneumonia, unspecified organism
CPT/HCPCS: 36415; 80053; 83880; 85025

== ENCOUNTER 2018-05-02 10:10 | Outpatient (CLI) | payer MEDICARE, OTHER ==
--- NOTE | 2018-05-02 11:15 | XRAY Report ---
Reason: PNEUMONIA,ECCHYMOSIS Procedure Date: 05/02/2018 Accession Number: [id number] / [id number] Procedure: XR - Chest 2 View X-Ray CPT Code: 23254 FULL RESULT: EXAM: CHEST RADIOGRAPHY EXAM DATE: 05/02/2018 10:23 AM. CLINICAL HISTORY: Pneumonia, ecchymosis. COMPARISON: CHEST 1 VIEW 04/19/2018 10:39 PM. TECHNIQUE: 2 views. FINDINGS: Lungs/Pleura: No focal opacities evident, representing significant improvement compared to 04/19/2018. Small bilateral pleural effusions, greater on the right. No pneumothorax. Normal volumes. Mediastinum: Heart and mediastinal contours are unremarkable. Other: Right-sided PICC line in position; tip is in the distal third SVC. IMPRESSION: 1. Right PICC line tip distal third SVC. 2. Small bilateral pleural effusions. RADIA
== END 2018-05-02 10:11 | disposition home or self-care (01) ==
LOC: DI 10:10
PROVIDERS: ATTEND Physician Assistant Medical
DX: J90 Pleural effusion, not elsewhere classified (principal)
CPT/HCPCS: 71046

== ENCOUNTER 2018-05-09 13:35 | Outpatient (CLI) | payer MEDICARE, OTHER ==
[2018-05-09 13:44] LABS: BASOPHILS % (AUTO) 0.7 %; EOSINOPHILS # (AUTO) 0.2 10^3/uL (0.0-0.7); EOSINOPHILS % (AUTO) 2.4 %; HGB - HEMOGLOBIN 9.3 g/dL (12.0-16.0); LYMPHOCYTES # (AUTO) 1.5 10^3/uL (1.5-3.5); LYMPHOCYTES % (AUTO) 23.9 %; MEAN CORPUSCULAR HEMOGLOBIN 33.4 pg (27.0-31.0); MEAN CORPUSCULAR HGB CONC 33.6 g/dL (32.0-36.0); MEAN CORPUSCULAR VOLUME 99.4 fL (81.0-99.0); MEAN PLATELET VOLUME 6.7 fL (7.9-10.8); MONOCYTES # (AUTO) 0.6 10^3/uL (0.0-1.0); MONOCYTES % (AUTO) 8.6 %; NEUTROPHILS # (AUTO) 4.2 10^3/uL (1.5-6.6); NEUTROPHILS % (AUTO) 64.4 %; PLT - PLATELET COUNT 246 10^3/uL (130-450); RED BLOOD COUNT 2.78 10^6/uL (4.20-5.40); RED CELL DISTRIBUTION WIDTH 14.3 % (12.0-15.0); WHITE BLOOD COUNT 6.5 x10^3/uL (4.8-10.8)
[2018-05-09 13:56] LABS: ALBUMIN 2.6 g/dL (3.2-5.5); ALBUMIN/GLOBULIN RATIO 0.6 (1.0-2.2); ALKALINE PHOSPHATASE 114 IU/L (42-121); ALT ALANINE AMINOTRANSFERASE < 10 IU/L (10-60); AST ASPARTATE AMINOTRANSFERASE 19 IU/L (10-42); BILIRUBIN,TOTAL 0.4 mg/dL (0.2-1.0); BUN - BLOOD UREA NITROGEN 13 mg/dL (6-20); CALCIUM 9.1 mg/dL (8.5-10.3); CARBON DIOXIDE - CO2 29 mmol/L (21-32); CHLORIDE 102 mmol/L (101-111); CREATININE 0.9 mg/dL (0.4-1.0); GFR - MDRD 62 (>89); GLUCOSE 105 mg/dL (70-100); SODIUM 139 mmol/L (135-145); TOTAL PROTEIN 6.9 g/dL (6.7-8.2)
== END 2018-05-09 13:36 | disposition home or self-care (01) ==
LOC: LAB 13:35
PROVIDERS: ATTEND Internal Medicine
DX: D64.9 Anemia, unspecified (principal); Z79.899 Other long term (current) drug therapy
CPT/HCPCS: 36415; 80053; 85025

== ENCOUNTER 2018-05-15 10:41 | Outpatient (CLI) | payer MEDICARE, OTHER ==
[2018-05-15 11:27] LABS: BASOPHILS # (AUTO) 0.1 10^3/uL (0.0-0.1); BASOPHILS % (AUTO) 0.9 %; EOSINOPHILS # (AUTO) 0.3 10^3/uL (0.0-0.7); EOSINOPHILS % (AUTO) 4.2 %; HGB - HEMOGLOBIN 10.3 g/dL (12.0-16.0); LYMPHOCYTES # (AUTO) 1.7 10^3/uL (1.5-3.5); LYMPHOCYTES % (AUTO) 24.8 %; MEAN CORPUSCULAR HEMOGLOBIN 33.1 pg (27.0-31.0); MEAN CORPUSCULAR HGB CONC 33.8 g/dL (32.0-36.0); MEAN CORPUSCULAR VOLUME 97.9 fL (81.0-99.0); MEAN PLATELET VOLUME 6.8 fL (7.9-10.8); MONOCYTES # (AUTO) 0.5 10^3/uL (0.0-1.0); MONOCYTES % (AUTO) 7.6 %; NEUTROPHILS # (AUTO) 4.2 10^3/uL (1.5-6.6); NEUTROPHILS % (AUTO) 62.5 %; PLT - PLATELET COUNT 341 10^3/uL (130-450); WHITE BLOOD COUNT 6.7 x10^3/uL (4.8-10.8)
== END 2018-05-15 10:42 | disposition home or self-care (01) ==
LOC: LAB 10:41
PROVIDERS: ATTEND Internal Medicine Infectious Disease
DX: D64.9 Anemia, unspecified (principal); R78.81 Bacteremia
CPT/HCPCS: 36415; 85025; 87040

== ENCOUNTER 2018-05-23 09:42 | Outpatient (CLI) | payer MEDICARE, OTHER | END 2018-05-23 09:43 | disposition home or self-care (01) | LOC: LAB 09:42 | PROVIDERS: ATTEND Internal Medicine Infectious Disease | DX: R78.81 Bacteremia (principal) | CPT/HCPCS: 36415; 87040 ==

== ENCOUNTER 2018-06-15 12:03 | Outpatient (CLI) | payer MEDICARE, OTHER ==
[2018-06-15 13:23] LABS: BASOPHILS # (AUTO) 0.1 10^3/uL (0.0-0.1); BASOPHILS % (AUTO) 1.1 %; EOSINOPHILS # (AUTO) 0.4 10^3/uL (0.0-0.7); EOSINOPHILS % (AUTO) 5.3 %; HGB - HEMOGLOBIN 11.3 g/dL (12.0-16.0); LYMPHOCYTES # (AUTO) 2.3 10^3/uL (1.5-3.5); LYMPHOCYTES % (AUTO) 29.8 %; MEAN CORPUSCULAR HEMOGLOBIN 31.7 pg (27.0-31.0); MEAN CORPUSCULAR HGB CONC 33.4 g/dL (32.0-36.0); MEAN PLATELET VOLUME 7.4 fL (7.9-10.8); MONOCYTES # (AUTO) 0.6 10^3/uL (0.0-1.0); MONOCYTES % (AUTO) 7.2 %; NEUTROPHILS # (AUTO) 4.4 10^3/uL (1.5-6.6); NEUTROPHILS % (AUTO) 56.6 %; PLT - PLATELET COUNT 267 10^3/uL (130-450); RED BLOOD COUNT 3.58 10^6/uL (4.20-5.40); RED CELL DISTRIBUTION WIDTH 13.8 % (12.0-15.0); WHITE BLOOD COUNT 7.8 x10^3/uL (4.8-10.8)
== END 2018-06-15 12:04 | disposition home or self-care (01) ==
LOC: LAB 12:03
PROVIDERS: ATTEND Physician Assistant Medical
DX: D64.9 Anemia, unspecified (principal)
CPT/HCPCS: 36415; 85025

== ENCOUNTER 2018-09-01 08:00 | Outpatient (CLI) | payer MEDICARE, OTHER | END 2018-09-01 23:59 | disposition home or self-care (01) | LOC: LAB.R 08:00 | PROVIDERS: ATTEND Internal Medicine | DX: Z51.81 Encounter for therapeutic drug level monitoring (principal); Z79.891 Long term (current) use of opiate analgesic | CPT/HCPCS: 80307; 81599 ==